=== PATIENT | male | born 1970 | race African-American/Black ===

== ENCOUNTER 2017-08-19 22:55 | Inpatient (IN) | payer OTHER, SELFPAY ==
[2017-08-19] MEDS ORDERED: Diltiazem 125 MG/25 ML ONE (23:09)
[2017-08-19 23:18] LABS: #Basophils 0.1 thou/uL (0.0-0.2); #Eosinphils 0.2 thou/uL (0.0-0.7); #Lymphocytes 4.2 thou/uL (1.20-3.40); #Monocytes 0.8 thou/uL (0.11-0.59); #Neutrophils 5.2 thou/uL (1.40-6.50); %Basophils 0.6 % (0.0-1.0); %Eosinophils 2.1 % (0.0-10.0); %Monocytes 7.9 % (0.0-10.0); %Neutrophils 49.4 % (42.0-75.0); Hemoglobin 14.5 g/dL (14.0-18.0); Mean Corpuscular HGB CONC 31.8 g/dL (32.0-36.0); Mean Corpuscular Hemoglobin 28.5 pg (27.0-31.0); Mean Corpuscular Volume 89.6 fl (80.0-94.0); Mean Platelet Volume 6.6 fL (7.4-10.4); Platelet Count 337 thou/uL (130-400); RBC Distribution Width 12.4 % (11.5-14.5); Red Blood Cell (RBC) Count 5.09 mill/uL (4.70-6.10); White Blood Cell (WBC) Count 10.6 thou/uL (4.8-10.8)
[2017-08-19 23:44] LABS: ALT (SGPT) 21 U/L (8-55); AST (SGOT) 23 U/L (5-34); Albumin 4.3 g/dL (3.5-5.0); Alkaline Phosphatase 99 U/L (40-150); Anion Gap 15 mmol/L (10-20); BUN (Urea Nitrogen) 10 mg/dL (8.9-20.6); Bilirubin, Total 0.6 mg/dL (0.2-1.2); CK (CPK) 252 U/L (30-200); Calc. Creatinine Clearance 0 mL/min (70-130); Calcium 9.9 mg/dL (7.8-10.44); Carbon Dioxide 23 mmol/L (22-29); Chloride 104 mmol/L (98-107); Estimated GFR-MDRD 79; Globulin 3.5 g/dL (2.4-3.5); Glucose 190 mg/dL (70-105); Potassium 4.4 mmol/L (3.5-5.1); Protein, Total 7.8 g/dL (6.0-8.3); Sodium 138 mmol/L (136-145)
[2017-08-19 23:48] LABS: Troponin I 0.012 ng/mL (< 0.028)
--- NOTE | 2017-08-19 23:49 | RAD ---
PORTABLE CHEST: 08/19/2017 PROVIDED CLINICAL HISTORY: Headache. COMPARISON: 12/24/2015 FINDINGS: The cardiac and mediastinal silhouette is unchanged in appearance. No focal consolidation, pleural f luid, or pneumothorax apparent. IMPRESSION: No evidence for an acute cardiopulmonary process. POS: [facility]
--- NOTE | 2017-08-19 23:58 | CT ---
CT BRAIN: 08/19/2017 PROVIDED CLINICAL HISTORY: Headache. COMPARISON: 04/15/2006 FINDINGS: The ventricular system is normal in size and morphology. There is no evidence for intracranial hemor rhage or mass effect. The extracranial soft tissues and osseous structures demonstrate an unremarkab le CT appearance. IMPRESSION: No evidence for intracranial hemorrhage or mass effect. POS: [facility]
[2017-08-20] MEDS ORDERED: Acetaminophen 325 MG TAB PO PRN (01:13)
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
[2017-08-20] MEDS ORDERED: Dextrose 5% in Water 1,000 ML IV PRN (01:26)
[2017-08-20] MEDS ORDERED: HumaLOG 300 UNITS/3 ML VIAL SC PRN (01:26)
[2017-08-20] MEDS ORDERED: Dextrose 50% Abboject 50 ML SYRINGE SLOW IVP PRN (01:26)
[2017-08-20] MEDS ORDERED: Diltiazem 125 MG in Sodium Chloride 0.9% 100 ML IVPB SCH (01:30)
[2017-08-20 01:46] LABS: Hemoglobin A1c 6.8 % (4.0-6.0); Magnesium 2.1 mg/dL (1.6-2.6); Phosphorus 3.7 mg/dL (2.3-4.7)
[2017-08-20 02:33] VITALS: BMI 36.2
[2017-08-20 02:40] LABS: #Basophils 0.1 thou/uL (0.0-0.2); #Eosinphils 0.2 thou/uL (0.0-0.7); #Lymphocytes 3.1 thou/uL (1.20-3.40); #Monocytes 0.6 thou/uL (0.11-0.59); #Neutrophils 4.3 thou/uL (1.40-6.50); %Basophils 0.9 % (0.0-1.0); %Eosinophils 2.2 % (0.0-10.0); %Lymphocytes 37.9 % (21.0-51.0); Hemoglobin 13.8 g/dL (14.0-18.0); Mean Corpuscular HGB CONC 33.3 g/dL (32.0-36.0); Mean Corpuscular Volume 89.9 fl (80.0-94.0); Mean Platelet Volume 6.6 fL (7.4-10.4); Platelet Count 305 thou/uL (130-400); RBC Distribution Width 12.4 % (11.5-14.5); Red Blood Cell (RBC) Count 4.61 mill/uL (4.70-6.10); White Blood Cell (WBC) Count 8.3 thou/uL (4.8-10.8)
[2017-08-20] MEDS ORDERED: Sodium Chloride 0.9% 1,000 ML IV SCH (02:45)
[2017-08-20 03:18] LABS: Troponin I 0.017 ng/mL (< 0.028)
[2017-08-20 03:25] LABS: Anion Gap 10 mmol/L (10-20); BUN (Urea Nitrogen) 14 mg/dL (8.9-20.6); Calc. Creatinine Clearance 185 mL/min (70-130); Calcium 9.5 mg/dL (7.8-10.44); Carbon Dioxide 23 mmol/L (22-29); Cardiac Risk 4.4 (Less than 4.5); Chloride 106 mmol/L (98-107); Cholesterol 181 mg/dl (< 200 Desired); Estimated GFR-MDRD Greater than 90; Glucose 82 mg/dL (70-105); HDL Cholesterol 41 mg/dL (>60 Neg Risk); LDL Cholesterol, Calculated 88 mg/dL; Potassium 4.1 mmol/L (3.5-5.1); Sodium 135 mmol/L (136-145); Triglycerides 258 mg/dL (Less than 150)
[2017-08-20 05:25] LABS: Troponin I 0.013 ng/mL (< 0.028)
[2017-08-20 07:46] LABS: Amphetamine Not Detected (NotDetected); Barbiturates Screen Not Detected (NotDetected); Benzodiazepine Screen Not Detected (NotDetected); Cocaine Metabolite Screen Not Detected (NotDetected); Medtox Control Line Valid? VALID (VALID); Medtox Reader # READER 1; Methadone Not Detected (NotDetected); Methamphetamine Not Detected (NotDetected); Opiate Screen Not Detected (NotDetected); Oxycodone Screen Not Detected (NotDetected); Phencyclidine (PCP) Not Detected (NotDetected); THC/Cannabinoid Screen Detected (NotDetected); Tricyclic Screen Not Detected (NotDetected)
[2017-08-20] MEDS ORDERED: Non-Formulary Item 1 EACH (Metformin Hcl [Metformin Hcl] 1,000 MG) PO SCH (08:00)
--- NOTE | 2017-08-20 08:06 | ULT ---
ULTRASOUND CAROTID BILATERAL STANDARD: HISTORY: Carotid bruit. Hypertensive emergency. COMPARISON: None. TECHNIQUE: Real-time, brown scale, color Doppler, and spectral analysis of the extracranial carotid and vertebral arteries is performed. There is mild atherosclerotic plaque of the right carotid bulb and extensive atherosclerotic plaque o f the left carotid bulb. Antegrade flow of the vertebral arteries. No elevated peak systolic velocities. Right ICA/CCA ratio is 0.67. Left ICA/CCA ratio is 0.4. IMPRESSION: No hemodynamically significant stenosis. POS: [facility]
[2017-08-20] MEDS ORDERED: glyBURIDE 5 MG TAB PO SCH (09:00)
[2017-08-20] MEDS: Aspirin 81 mg Enteric Coated Tablet PO SCH (09:50)
[2017-08-20] MEDS: Enoxaparin Sodium 40 MG/0.4 ML SYRINGE SC SCH (09:51)
--- NOTE | 2017-08-20 11:18 | PDOC.FM ---
- Subjective Subjective: Still complaining of photophobia but no headache or meningismus. Discussed benefit of LP this morning with pt and concern for SAH despite negative head CT. Pt declined. - Objective MAR Reviewed: Yes Vital Signs & Weight: Vital Signs (12 hours) Temp Pulse Resp BP Pulse Ox 08/20/17 08:09 98.3 F 82 20 97 08/20/17 08:05 98.3 F 82 20 122/73 97 08/20/17 04:00 98.6 F 80 18 115/56 L 08/20/17 02:45 98.3 F 91 20 97 08/20/17 02:10 98.3 F 91 20 125/74 97 Weight Weight 121.251 kg Result Diagrams: 08/20/17 02:30 08/20/17 02:30 <Olivia Guzman - Last Filed: 08/20/17 11:29> - Objective Vital Signs & Weight: Vital Signs (12 hours) Temp Pulse Resp BP Pulse Ox 08/21/17 04:00 98.1 F 89 20 110/61 99 08/21/17 00:00 98.5 F 92 20 135/82 98 Weight Weight 108.227 kg I&O: 08/20/17 08/21/17 08/22/17 06:59 06:59 06:59 Intake Total 366 Balance 366 Result Diagrams: 08/20/17 02:30 08/20/17 02:30 <Johny De nAda - Last Filed: 08/21/17 09:29> Phys Exam - Physical Examination Constitutional: NAD HEENT: PERRLA, moist MMs Respiratory: no wheezing, no rales, clear to auscultation bilateral 2/6 systolic murmur Gastrointestinal: soft, non-tender Musculoskeletal: no edema, pulses present Neurological: non-focal, normal sensation, moves all 4 limbs CN 2-12 intact Psychiatric: normal affect, A&O x 3 Skin: no rash <Olivia Guzman - Last Filed: 08/20/17 11:29> Dx/Plan (1) Hypertensive emergency Code(s): I16.1 - HYPERTENSIVE EMERGENCY Status: Acute (2) Heart failure with reduced ejection fraction Code(s): I50.20 - UNSPECIFIED SYSTOLIC (CONGESTIVE) HEART FAILURE Status: Acute (3) Hypertension Code(s): I10 - ESSENTIAL (PRIMARY) HYPERTENSION Status: Acute (4) Marijuana abuse Code(s): F12.10 - CANNABIS ABUSE, UNCOMPLICATED Status: Acute (5) Supraventricular tachycardia Code(s): I47.1 - SUPRAVENTRICULAR TACHYCARDIA Status: Acute (6) DM2 (diabetes mellitus, type 2) Status: Acute QualifierTitle: Chronic kidney disease stage: unspecified stage (7) GERD (gastroesophageal reflux disease) Code(s): K21.9 - GASTRO-ESOPHAGEAL REFLUX DISEASE WITHOUT ESOPHAGITIS Status: Acute QualifierTitle: Esophagitis presence: esophagitis presence not specified Qualified Code(s): K21.9 - Gastro-esophageal reflux disease without esophagitis (8) Headache Code(s): R51 - HEADACHE Status: Acute - Plan Plan: (1) Hypertensive Emergency: - Initial record BP in ED was 178/155 with associated SVT, diaphoresis, severe headache - BP and HR responded well to Diltiazem push, pt currently on diltiazem drip at 5 mg/hr with bp 122/73. - Resume home meds once off drip - Complains of photophobia this am - Neg CT head in ED for intracranial bleed, however still moderate suspicion for SAH. Discussed benefit with patient who declined LP. - Neg CXR, TSH normal, and repeat EKG showed Sinus Tachycardia - Troponins negative - Echo pending - Carotid bruits heard on initial H&P; carotid US ordered and did not show significant stenosis requiring intervention (2) SVT-Resolved - See above - Responded well to diltiazem push, repeat EKG showed Sinus Tachycardia - HR in the 80s-90s - wean off dilt drip and restart home meds; however patient may need rate control if he continues to go into SVT. Will monitor closely today and await echo results. - will consider cardiology consult after results. (4) Type 2 Diabetes Mellitus - Restart home metformin, hba1c 6.8 - SSI - Accuchecks ACHS (5) HTN: - Restart amlodipine after weaning off dilt drip (6) HLD: - Started pt on a high intensity statin (atorvastatin 40mg daily). <Olivia Guzman - Last Filed: 08/20/17 11:29> (1) Hypertensive emergency Code(s): I16.1 - HYPERTENSIVE EMERGENCY Status: Acute (2) Supraventricular tachycardia Code(s): I47.1 - SUPRAVENTRICULAR TACHYCARDIA Status: Resolved (3) Hypertension Code(s): I10 - ESSENTIAL (PRIMARY) HYPERTENSION Status: Chronic Qualifiers: Hypertension type: essential hypertension Qualified Code(s): I10 - Essential (primary) hypertension (4) CHF (congestive heart failure) Code(s): I50.9 - HEART FAILURE, UNSPECIFIED Status: Acute (5) Bilateral carotid bruits Code(s): R09.89 - OTH SYMPTOMS AND SIGNS INVOLVING THE CIRC AND RESP SYSTEMS Status: Acute (6) Marijuana abuse Code(s): F12.10 - CANNABIS ABUSE, UNCOMPLICATED Status: Chronic (7) DM2 (diabetes mellitus, type 2) Status: Chronic Qualifiers: Chronic kidney disease stage: unspecified stage <Johny De Anda - Last Filed: 08/21/17 09:29> Attending Addendum - Attending Addendum Date/Time: 08/21/17925 I personally evaluated the patient and discussed the management with Dr. Guzman I agree with the History, Examination, Assessment and Plan documented above with any addition or exceptions noted below. Note patient refusing LP r/o SAH patient understands indication,risks and potential risks and continues to decline LP. HR stable Echocardiogram with reduced EF 25% ACEI ,BB and statin initiated. <Johny De Anda - Last Filed: 08/21/17 09:29>
[2017-08-20] MEDS ORDERED: metFORMIN 500 MG TAB PO SCH (12:15)
[2017-08-20 14:10] LABS: Creatinine, Urine 103.77 mg/dL (63-166); Microalbumin Urine 17.5 mg/dL (0.5-50.0); Microalbumin/Creat Ratio 168.6 mg/g (Less than 30)
[2017-08-20] MEDS ORDERED: Metoclopramide HCl 10 MG/2 ML VIAL IVP SCH (15:45)
[2017-08-20] MEDS ORDERED: diphenhydrAMINE 25 MG in Sodium Chloride 0.9% 50 ML IVPB SCH (16:00)
[2017-08-20] MEDS: Lisinopril 2.5 MG TAB PO SCH (20:48)
[2017-08-20] MEDS: Atorvastatin Calcium 40 MG TAB PO SCH (20:48)
[2017-08-20] MEDS ORDERED: Amlodipine 10 MG TAB PO SCH ×2 (21:00)
--- NOTE | 2017-08-20 21:52 | CON ---
DATE OF CONSULTATION: 08/20/2017 HISTORY OF PRESENT ILLNESS: Mr. Jaleel Coleman is a 47-year-old black male, who states that approximately 8-10 years ago, he was hospitalized at [facility] in [place]. He was told that he had fluid on his heart, but he cannot give any other specific information. He was hospitalized here in 11/2015 for chest pain. Cardiac enzymes were unremarkable. He underwent Cardiolite testing , which revealed no evidence of ischemia. However, his ejection fraction on Cardiolite was 22%. Echo revealed ejection fraction of 30% to 35%. He has been followed at [facility]. He states in the past, he was on metoprolol as well as lisinopril; however, those were stopped at least a couple of years ago. He denies any recent chest discomfort. He now is admitted with complaints of increased shortness of breath, palpitations, diaphoresis, and headache. On presentation, his blood pressure is 178/155 and his pulse was 165/ minute. This appeared to be supraventricular tachycardia on his EKG. He was given 20 mg of Cardizem IV followed by Cardizem drip and apparently converted to sinus rhythm. In general, it does not sound as if he has any symptoms referable to his cardiomyopathy -- most of time, he has no shortness of breath. If he stands all day, he may have some edema. PAST MEDICAL HISTORY: Hypertension, diabetes, and hypercholesterolemia. MEDICATIONS: Amlodipine 10 mg at bedtime, simvastatin 20 at bedtime, glyburide 5 mg b.i.d., and metformin 1000 mg b.i.d. ALLERGIES: None. SOCIAL HISTORY: Does not smoke or drink, but occasionally uses marijuana. FAMILY HISTORY: Unremarkable. REVIEW OF SYSTEMS: Twelve-point review of systems otherwise unremarkable. PHYSICAL EXAMINATION: VITAL SIGNS: Blood pressure 124/78, pulse of 85. HEENT: PERRL. NECK: Supple. CHEST: Clear. CARDIAC: S1 and S2 are normal, without any S3, S4, or murmurs. Carotid upstrokes normal without bruits. ABDOMEN: Normal bowel sounds, without tenderness, organomegaly. EXTREMITIES: Revealed no clubbing, cyanosis, or edema. NEUROLOGIC: Grossly intact. SKIN: Warm and dry. LABORATORY DATA: Admission EKG revealed supraventricular tachycardia with rate of 165 per minute with possible left ventricular hypertrophy. Repeat EKG after he converted revealed sinus tachycardia with a rate of 111 per minute, poor R- wave progression. Hemoglobin 13.8, hematocrit 41.5, white count 98,300, platelets 305,000. D-dimer less than 0.27. Sodium 135, potassium 4.1, chloride 106, carbon dioxide 23, BUN 14, creatinine 0.83. Cardiac enzymes were unremarkable. Cholesterol 181, triglycerides 258, HDL 41, LDL 88. Echocardiogram revealed mild left ventricular enlargement, severe left ventricular dysfunction with ejection fraction of 25% to 30%, evidence for diastolic dysfunction, moderate left atrial enlargement, moderate mitral regurgitation, aortic valvular sclerosis, and mild tricuspid regurgitation. IMPRESSION: 1. Cardiomyopathy of uncertain etiology. He did have no evidence of ischemia or fixed defect on Cardiolite 2 years ago. Ejection fraction appears to have worsened with a fall from 30% - 35% to 25% - 30%. 2. Probable supraventricular tachycardia. This appeared to convert with intravenous Cardizem. 3. Hypertension. 4. Diabetes. 5. Hypercholesterolemia. PLAN: The patient should be on heart failure medications - carvedilol, SUZANNA inhibitor, and diuretic. Amlodipine will be discontinued. Instead he placed on carvedilol 6.25 b.i.d., lisinopril 2.5 mg b.i.d., and furosemide 20 q.a.m. Also, consideration should be given to cardiac catheterization to accurately rule out coronary artery disease as a cause of his cardiomyopathy. He seems somewhat reluctant to pursue this. However, we will continue to discuss this. He also should have a LifeVest placed, although I am not certain that he will be able to afford that. Also, consideration should be given to ICD placement if he continues to have poor left ventricular function 3 months from now. Consider RFA of SVT- will consult EP when back from the holiday weekend. EWA
--- NOTE | 2017-08-21 06:55 | PDOC.FM ---
- Subjective Subjective: Patient doing well this AM. No significant overnight events. Patient states he is no longer having headaches or photophobia. He is ready to go home. Discussed benefit of cardiac cath in length in determining further management of current HF condition. Patient also interested in learning more about the Life Vest and how much it costs. He denies any chest pain, headache, shortness of breath this AM. He is willing to talk with cardiology today about potential options for further workup. - Objective MAR Reviewed: Yes Vital Signs & Weight: Vital Signs (12 hours) Temp Pulse Resp BP BP Pulse Ox 08/21/17 04:00 98.1 F 89 20 110/61 99 08/21/17 00:00 98.5 F 92 20 135/82 98 08/20/17 20:48 94 135/73 08/20/17 20:00 99.2 F 94 20 135/73 99 Weight Weight 108.227 kg I&O: 08/19/17 08/20/17 08/21/17 06:59 06:59 06:59 Intake Total 366 Balance 366 Result Diagrams: 08/20/17 02:30 08/20/17 02:30 EKG Reviewed by me: Yes Radiology Reviewed by me: No <Ciara Padilla - Last Filed: 08/21/17 07:56> - Objective Vital Signs & Weight: Vital Signs (12 hours) Temp Pulse Resp BP Pulse Ox 08/21/17 04:00 98.1 F 89 20 110/61 99 08/21/17 00:00 98.5 F 92 20 135/82 98 Weight Weight 108.227 kg I&O: 08/20/17 08/21/17 08/22/17 06:59 06:59 06:59 Intake Total 366 Balance 366 Result Diagrams: 08/20/17 02:30 08/20/17 02:30 <Johny De Anda - Last Filed: 08/21/17 09:53> Phys Exam - Physical Examination Constitutional: NAD HEENT: PERRLA, moist MMs, sclera anicteric Neck: supple Respiratory: no wheezing, clear to auscultation bilateral Cardiovascular: RRR Gastrointestinal: soft, no distention, positive bowel sounds Musculoskeletal: no edema, pulses present Neurological: non-focal, moves all 4 limbs Psychiatric: normal affect, A&O x 3 Skin: no rash, cap refill <2 seconds <Ciara Padilla - Last Filed: 08/21/17 07:56> Dx/Plan (1) Hypertensive emergency Code(s): I16.1 - HYPERTENSIVE EMERGENCY Status: Acute (2) Headache Code(s): R51 - HEADACHE Status: Acute (3) Supraventricular tachycardia Code(s): I47.1 - SUPRAVENTRICULAR TACHYCARDIA Status: Resolved (4) Heart failure with reduced ejection fraction Code(s): I50.20 - UNSPECIFIED SYSTOLIC (CONGESTIVE) HEART FAILURE Status: Chronic QualifierTitle: Heart failure chronicity: chronic Qualified Code(s): I50.22 - Chronic systolic (congestive) heart failure (5) HLD (hyperlipidemia) Code(s): E78.5 - HYPERLIPIDEMIA, UNSPECIFIED Status: Chronic QualifierTitle: Hyperlipidemia type: unspecified Qualified Code(s): E78.5 - Hyperlipidemia, unspecified (6) Hypertension Code(s): I10 - ESSENTIAL (PRIMARY) HYPERTENSION Status: Chronic QualifierTitle: Hypertension type: essential hypertension Qualified Code( s): I10 - Essential (primary) hypertension (7) Marijuana abuse Code(s): F12.10 - CANNABIS ABUSE, UNCOMPLICATED Status: Chronic (8) DM2 (diabetes mellitus, type 2) Status: Chronic QualifierTitle: Chronic kidney disease stage: unspecified stage - Plan Plan: Cardiomyopathy of uncertain etiology - No ischemia or fixed defect on cardiolite stress test 2 years ago. EF down to 20-25% on recent echo from 30-35% from echo done in 2016. - Pt started on SUZANNA-I, BB, and diuretic per cardiology - Cardiology consulted; appreciate recs - Pt would benefit from cardiac cath to rule out CAD as cause of CHF, but he is reluctant at this time - Pt in need of Life Vest, but uncertain whether he can afford it - Pt may need ICD placed if poor LV function in 3 months - Echo done during this hospitalization shows EF 20-25% with diastolic dysfunction Hypertensive Emergency, resolved - Initial record BP in ED was 178/155 with associated SVT, diaphoresis, severe headache - BP and HR responded well to Diltiazem push, drip discontinued - Amlodipine d/c'd per cards and pt started on SUZANNA-I due to comorbid CHF - Neg CT head in ED for intracranial bleed, however still moderate suspicion for SAH. Discussed benefit with patient who declined LP. - Neg CXR, TSH normal, and repeat EKG showed Sinus Tachycardia - Troponins negative - Echo shows reduced EF of 20-25% which is decreased from prior echo - Carotid bruits heard on initial H&P; carotid US ordered and did not show significant stenosis requiring intervention SVT-Resolved - See above - Responded well to diltiazem push, repeat EKG showed Sinus Tachycardia - HR in the 80s-90s - Pt started on carvedilol for CHF, this will presumably help to rate control pt. - Cardiology consulted; appreciate recs Type 2 Diabetes Mellitus - Restart home metformin, hba1c 6.8 - SSI - Accuchecks ACHS HTN: - d/c'd amlodipine per cardiology; started on lisinopril and carvedilol for comorbid CHF HLD: - Started pt on a high intensity statin (atorvastatin 40mg daily). CODE STATUS: Full DVT PPx: Lovenox Dispo: Pt stable. Recommend cardiac cath and possible Life Vest. Pt to discuss further with cardiology. Discharge pending cardiology recs. <Ciara Padilla - Last Filed: 08/21/17 07:56> (1) Hypertensive emergency Code(s): I16.1 - HYPERTENSIVE EMERGENCY Status: Acute (2) Supraventricular tachycardia Code(s): I47.1 - SUPRAVENTRICULAR TACHYCARDIA Status: Resolved (3) Hypertension Code(s): I10 - ESSENTIAL (PRIMARY) HYPERTENSION Status: Chronic Qualifiers: Hypertension type: essential hypertension Qualified Code(s): I10 - Essential (primary) hypertension (4) CHF (congestive heart failure) Code(s): I50.9 - HEART FAILURE, UNSPECIFIED Status: Acute (5) Bilateral carotid bruits Code(s): R09.89 - OTH SYMPTOMS AND SIGNS INVOLVING THE CIRC AND RESP SYSTEMS Status: Acute (6) Marijuana abuse Code(s): F12.10 - CANNABIS ABUSE, UNCOMPLICATED Status: Chronic (7) DM2 (diabetes mellitus, type 2) Status: Chronic Qualifiers: Chronic kidney disease stage: unspecified stage <Johny De Anda - Last Filed: 08/21/17 09:53> Attending Addendum - Attending Addendum Date/Time: 08/21/17 1163 I personally evaluated the patient and discussed the management with Dr. Padilla I agree with the History, Examination, Assessment and Plan documented above with any addition or exceptions noted below. Patient with cardiomyopathy EF25% patient this am declining recommendation for Heart cath. Patient counseled regard life vest and will look into availability and cost. Appreciate Cardiology recommendations. <Johny De Anda - Last Filed: 08/21/17 09:53>
[2017-08-21] MEDS ORDERED: Furosemide 20 MG TAB PO SCH (09:00)
[2017-08-21] MEDS: Enoxaparin Sodium 40 MG/0.4 ML SYRINGE SC SCH (11:52)
[2017-08-21] MEDS: Lisinopril 2.5 MG TAB PO SCH (11:52)
[2017-08-21] MEDS: metFORMIN 500 MG TAB PO SCH ×2 (11:54→17:59)
[2017-08-21] MEDS: Carvedilol 6.25 MG TAB PO SCH ×2 (11:54→17:00)
[2017-08-21] MEDS: Aspirin 81 mg Enteric Coated Tablet PO SCH (11:54)
[2017-08-21] MEDS: Atorvastatin Calcium 40 MG TAB PO SCH (20:31)
[2017-08-21] MEDS ORDERED: Lisinopril 5 MG TAB PO SCH (21:00)
[2017-08-21] MEDS ORDERED: Carvedilol 6.25 MG TAB PO SCH (21:00)
[2017-08-22 01:06] VITALS: BP 141/83; TEMP 97.5
[2017-08-22] MEDS ORDERED: Furosemide 40 MG TAB PO SCH (07:30)
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
== END 2017-08-22 04:20 | disposition left against medical advice (07) | DRG 309 ==
LOC: ERS 22:55 → 2NO 08-20 00:42
PROVIDERS: ADMIT Emergency Medicine; ATTEND Emergency Medicine
DX: I47.1 Supraventricular tachycardia (principal); I16.1 Hypertensive emergency; I42.8 Other cardiomyopathies; I50.22 Chronic systolic (congestive) heart failure; I13.0 Hypertensive heart and chronic kidney disease with heart failure and stage 1 through stage 4 chronic kidney disease, or unspecified chronic kidney disease; N18.9 Chronic kidney disease, unspecified; E11.22 Type 2 diabetes mellitus with diabetic chronic kidney disease; E78.5 Hyperlipidemia, unspecified; E78.00 Pure hypercholesterolemia, unspecified; R51 Headache; F12.10 Cannabis abuse, uncomplicated; R09.89 Other specified symptoms and signs involving the circulatory and respiratory systems; K21.9 Gastro-esophageal reflux disease without esophagitis
CPT/HCPCS: 36415; 36416; 70450; 71045; 80048; 80053; 80061; 80306; 82043; 82553; 83036; 83735; 83880; 84100; 84443; 84484; 85025; 93005; 93306; 93798; 93880; 96365; 96366; 96376; J1200; J1650; J7050

== ENCOUNTER 2017-08-22 12:52 | Inpatient (IN) | payer OTHER, SELFPAY ==
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
[2017-08-22] MEDS ORDERED: Labetalol HCl 100 MG/20 ML VIAL SLOW IVP ONE (13:40)
[2017-08-22 13:56] LABS: #Basophils 0.1 thou/uL (0.0-0.2); #Eosinphils 0.1 thou/uL (0.0-0.7); #Lymphocytes 2.2 thou/uL (1.20-3.40); #Monocytes 0.4 thou/uL (0.11-0.59); #Neutrophils 4.7 thou/uL (1.40-6.50); %Eosinophils 1.2 % (0.0-10.0); %Lymphocytes 29.3 % (21.0-51.0); %Monocytes 5.9 % (0.0-10.0); %Neutrophils 62.7 % (42.0-75.0); Hemoglobin 15.4 g/dL (14.0-18.0); Mean Corpuscular Hemoglobin 30.2 pg (27.0-31.0); Mean Corpuscular Volume 88.9 fl (80.0-94.0); Mean Platelet Volume 6.8 fL (7.4-10.4); Platelet Count 344 thou/uL (130-400); RBC Distribution Width 12.4 % (11.5-14.5); White Blood Cell (WBC) Count 7.5 thou/uL (4.8-10.8)
[2017-08-22] MEDS ORDERED: Labetalol HCl 100 MG/20 ML VIAL ONE (14:01)
[2017-08-22 14:22] LABS: CKMB 2.7 ng/mL (0-6.6); Troponin I Less than 0.010 ng/mL (< 0.028)
[2017-08-22 14:26] LABS: Troponin I Less than 0.010 ng/mL (< 0.028)
[2017-08-22] MEDS ORDERED: Ondansetron HCl/PF 4 MG/2 ML Vial IVP PRN ×2 (15:37→16:20)
[2017-08-22] MEDS ORDERED: Ondansetron ODT 4 MG TAB SL PRN (15:37)
[2017-08-22] MEDS ORDERED: Sodium Chloride 0.9% 1,000 ML IV SCH (15:37)
[2017-08-22] MEDS ORDERED: Dextrose 5% in Water 1,000 ML IV PRN (16:20)
[2017-08-22] MEDS ORDERED: Dextrose 50% Abboject 50 ML SYRINGE SLOW IVP PRN (16:20)
[2017-08-22] MEDS ORDERED: Calcium Carbonate 500 MG ChewTAB PO PRN (16:20)
[2017-08-22] MEDS ORDERED: Acetaminophen 325 MG TAB PO PRN (16:20)
[2017-08-22] MEDS ORDERED: Ondansetron ODT 4 MG TAB PO PRN (16:20)
[2017-08-22] MEDS ORDERED: Enoxaparin Sodium 40 MG/0.4 ML SYRINGE SC SCH (16:30)
[2017-08-22 16:59] VITALS: BMI 35.7
[2017-08-22] MEDS ORDERED: Communication Order-Pharmacy FS SCH (17:30)
[2017-08-22] MEDS: Sodium Chloride 0.9% 1,000 ML IV SCH (17:35)
[2017-08-22] MEDS: metFORMIN 500 MG TAB PO SCH (17:39)
[2017-08-22] MEDS: HumaLOG 300 UNITS/3 ML VIAL SC PRN (18:36)
[2017-08-22] MEDS: Carvedilol 6.25 MG TAB PO SCH (18:39)
[2017-08-22] MEDS ORDERED: Atorvastatin Calcium 40 MG TAB PO SCH (21:00)
[2017-08-23] MEDS: Carvedilol 6.25 MG TAB PO SCH ×2 (05:18→17:09)
[2017-08-23] MEDS: Furosemide 20 MG TAB PO SCH (05:18)
[2017-08-23] MEDS: Sodium Chloride 0.9% 1,000 ML IV SCH (05:18)
--- NOTE | 2017-08-23 06:38 | PDOC.FM ---
- Subjective Subjective: Patient doing well this AM. No significant overnight events. Denies chest pain, palpitations, shortness of breath or headache. Agreed to proceed heart catheterization. - Objective MAR Reviewed: Yes Vital Signs & Weight: Vital Signs (12 hours) Temp Pulse Resp BP BP Pulse Ox 08/23/17 05:18 147/89 H 08/23/17 05:17 95 08/23/17 03:59 98.7 F 95 17 131/72 99 08/22/17 23:55 86 18 142/76 H 94 L 08/22/17 20:00 98.4 F 95 18 124/61 08/22/17 18:39 147/89 H Weight Weight 119.159 kg I&O: 08/21/17 08/22/17 08/23/17 06:59 06:59 06:59 Intake Total 300 Output Total 600 Balance -300 Result Diagrams: 08/22/17 13:43 EKG Reviewed by me: Yes Radiology Reviewed by me: No Phys Exam - Physical Examination Constitutional: NAD HEENT: moist MMs, sclera anicteric Neck: no nodes, supple Respiratory: no wheezing, clear to auscultation bilateral Cardiovascular: RRR, no significant murmur Gastrointestinal: soft, non-tender, no distention, positive bowel sounds Musculoskeletal: no edema, pulses present Neurological: non-focal, moves all 4 limbs Psychiatric: normal affect, A&O x 3 Skin: no rash, cap refill <2 seconds Dx/Plan (1) Heart failure with reduced ejection fraction Code(s): I50.20 - UNSPECIFIED SYSTOLIC (CONGESTIVE) HEART FAILURE Status: Chronic Qualifiers: Heart failure chronicity: chronic Qualified Code(s): I50.22 - Chronic systolic (congestive) heart failure (2) DM2 (diabetes mellitus, type 2) Status: Chronic Qualifiers: Chronic kidney disease stage: unspecified stage (3) HLD (hyperlipidemia) Code(s): E78.5 - HYPERLIPIDEMIA, UNSPECIFIED Status: Chronic Qualifiers: Hyperlipidemia type: unspecified Qualified Code(s): E78.5 - Hyperlipidemia , unspecified (4) HTN, goal below 140/90 Code(s): I10 - ESSENTIAL (PRIMARY) HYPERTENSION Status: Chronic (5) Marijuana abuse Code(s): F12.10 - CANNABIS ABUSE, UNCOMPLICATED Status: Chronic - Plan Plan: Cardiomyopathy of uncertain etiology w/ EF 20-25 - Admit to tele & Continue SUZANNA-I, BB, and lasix - Recommend cardiac cath to rule out ischemia; will go for procedure today - NPO @ mn in preparation for potential cath - Recommend Life Vest due to low EF and presentation with arrhythmia at admission two days ago; pending case mgmt assistance & financial aide - Will need repeat echo in 3 months after maximized medical mgmt to determine if AICD candidate - Cardiology consulted; appreciate recs Sinus tachycardia - Concern for development of arrhythmias - Restarted carvedilol that was started a few days ago for HF HTN Emergency, resolved - no further headache or signs of end organ damage - continue BB, ACEI as prescribed - BP stable. Continue to monitor and adjust medications as needed DM 2 - Restart home metformin, hba1c 6.8 - SSI + Accuchecks ACHS - CC diet once diet added HLD - high intensity statin Dispo: Stable. Will go for heart catheterization today
[2017-08-23] MEDS: metFORMIN 500 MG TAB PO SCH (07:05)
[2017-08-23] MEDS ORDERED: Lidocaine 1% (PF) 30 ML VIAL ONE (07:07)
[2017-08-23] MEDS ORDERED: Heparin 10,000 UNITS/1 ML VIAL ONE (07:07)
[2017-08-23 08:58] LABS: Prothrombin Time 13.1 SEC (12.0-14.7)
[2017-08-23] MEDS ORDERED: Enoxaparin Sodium 40 MG/0.4 ML SYRINGE SC SCH (09:00)
[2017-08-23] MEDS ORDERED: Lisinopril 5 MG TAB PO SCH (09:00)
[2017-08-23] MEDS ORDERED: Midazolam HCl 2 mg/2 ml Vial ONE (09:01)
[2017-08-23] MEDS ORDERED: Fentanyl 100 MCG/2 ML VIAL ONE (09:02)
[2017-08-23 09:15] LABS: Anion Gap 12 mmol/L (10-20); BUN (Urea Nitrogen) 15 mg/dL (8.9-20.6); Calc. Creatinine Clearance 177 mL/min (70-130); Calcium 9.7 mg/dL (7.8-10.44); Carbon Dioxide 22 mmol/L (22-29); Chloride 104 mmol/L (98-107); Estimated GFR-MDRD Greater than 90; Glucose 189 mg/dL (70-105); Potassium 4.2 mmol/L (3.5-5.1); Sodium 134 mmol/L (136-145)
[2017-08-23] MEDS ORDERED: Protamine Sulfate 50 MG/5 ML VIAL ONE (09:18)
[2017-08-23] MEDS ORDERED: Acetaminophen/Codeine 30-300mg Tablet PO PRN ×2 (09:28)
[2017-08-23] MEDS ORDERED: traMADol HCl 50 MG TAB PO PRN (09:28)
[2017-08-23] MEDS ORDERED: Nitroglycerin 0.4 MG TAB (25 Tab Bottle) SL PRN (09:28)
[2017-08-23] MEDS ORDERED: Sodium Chloride 0.9% 1,000 ML IV SCH (09:30)
[2017-08-23] MEDS ORDERED: Sodium Chloride 0.9% 200 ML IV SCH (09:30)
[2017-08-23] MEDS ORDERED: Iopamidol 370 76% 100 ML VIAL ONE (10:22)
[2017-08-23] MEDS: HumaLOG 300 UNITS/3 ML VIAL SC PRN (12:48)
--- NOTE | 2017-08-23 16:02 | ADD-PRG ---
DATE OF SERVICE: 08/23/2017 This is an addendum to the note of Dr. Ciara Padilla. Mr. 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 His most recent ejection fraction was 20%-25%. He has been seen by Cardiology who recommended a cardiac catheterization to completely rule out coronary artery disea se. Preliminarily, his heart catheterization was normal showing no evidence of significant CAD. We will continue to follow with Cardiology and continue with his current heart failure regimen.
[2017-08-23] MEDS ORDERED: Simvastatin 40 MG TAB PO SCH (21:00)
[2017-08-23] MEDS ORDERED: Atorvastatin Calcium 40 MG TAB PO SCH (21:00)
--- NOTE | 2017-08-24 07:02 | PDOC.FM ---
- Subjective Subjective: Patient doing well this AM. No significant overnight events. Denies chest pain, shortness of breath or palpitations. Patient states that he has been communicating with an individual named Kathrine regarding the Life Vest. She is helping to work things out financially. He was told this could all be done from home. Patient is in good spirits and seems to be highly motivated to make some changes. He was very inquisitive when asking questions regarding his medications. - Objective MAR Reviewed: Yes Vital Signs & Weight: Vital Signs (12 hours) Temp Pulse Resp BP Pulse Ox 08/24/17 04:00 97.9 F 88 18 135/81 96 08/23/17 20:00 98.8 F 88 16 121/65 97 Weight Weight 118.932 kg I&O: 08/23/17 08/24/17 08/25/17 06:59 06:59 06:59 Intake Total 300 Output Total 600 901 Balance -300 -901 Result Diagrams: 08/22/17 13:43 08/23/17 08:36 EKG Reviewed by me: Yes Radiology Reviewed by me: No <Ciara Padilla - Last Filed: 08/24/17 08:21> - Objective Vital Signs & Weight: Vital Signs (12 hours) Temp Pulse Pulse Pulse Resp BP BP 08/24/17 08:48 98.9 F 87 16 134/85 08/24/17 08:46 74 93 134/85 BP BP Pulse Ox Pulse Ox Pulse Ox 08/24/17 08:48 134/85 87 L 08/24/17 08:46 156/86 H 97 99 Weight Weight 118.932 kg I&O: 08/23/17 08/24/17 08/25/17 06:59 06:59 06:59 Intake Total 300 Output Total 600 901 Balance -300 -901 Result Diagrams: 08/22/17 13:43 08/23/17 08:36 <Ramsey Garcia - Last Filed: 08/24/17 16:51> Phys Exam - Physical Examination Constitutional: NAD HEENT: moist MMs, sclera anicteric Neck: supple Respiratory: clear to auscultation bilateral Cardiovascular: RRR, no significant murmur Gastrointestinal: soft, non-tender, positive bowel sounds Musculoskeletal: no edema, pulses present Neurological: non-focal, moves all 4 limbs Psychiatric: normal affect, A&O x 3 Skin: no rash, cap refill <2 seconds <Ciara Padilla - Last Filed: 08/24/17 08:21> Dx/Plan (1) Heart failure with reduced ejection fraction Code(s): I50.20 - UNSPECIFIED SYSTOLIC (CONGESTIVE) HEART FAILURE Status: Chronic QualifierTitle: Heart failure chronicity: chronic Qualified Code(s): I50.22 - Chronic systolic (congestive) heart failure (2) DM2 (diabetes mellitus, type 2) Status: Chronic QualifierTitle: Chronic kidney disease stage: unspecified stage (3) HLD (hyperlipidemia) Code(s): E78.5 - HYPERLIPIDEMIA, UNSPECIFIED Status: Chronic QualifierTitle: Hyperlipidemia type: unspecified Qualified Code(s): E78.5 - Hyperlipidemia, unspecified (4) HTN, goal below 140/90 Code(s): I10 - ESSENTIAL (PRIMARY) HYPERTENSION Status: Chronic (5) Marijuana abuse Code(s): F12.10 - CANNABIS ABUSE, UNCOMPLICATED Status: Chronic - Plan Plan: Cardiomyopathy of uncertain etiology w/ EF 20-25 - Continue ARB, BB, and lasix; switched from SUZANNA-I to ARB due to potential adverse effect of lip and tongue swelling - Cardiac cath negative for any signs of ischemia or CAD - Recommend Life Vest due to low EF and presentation with arrhythmia at admission; Pt has spoken to a Life Vest medical representative by the name of Kathrine who is providing information on financial assistance - Will need repeat echo in 3 months after maximized medical mgmt to determine if AICD candidate - Cardiology consulted; appreciate recs Sinus tachycardia, resolved - Concern for development of arrhythmias; telemetry showed only SR yesterday - Continue carvedilol for HF HTN Emergency, resolved - no further headache or signs of end organ damage - continue BB, ARB as prescribed - BP stable. Continue to monitor and adjust medications as needed DM 2 - Restart home metformin, hba1c 6.8 - SSI + Accuchecks ACHS - CC diet once diet added - Continue high intensity statin HLD - high intensity statin Dispo: Stable. Discharge home today with close follow up with cardiology and PCP. <Ciara Padilla - Last Filed: 08/24/17 08:21> Attending Addendum - Attending Addendum Date/Time: 08/24/17 1650 I personally evaluated the patient and discussed the management with Dr. Padilla. I agree with the History, Examination, Assessment and Plan documented above with any addition or exceptions noted below. <Ramsey Garcia - Last Filed: 08/24/17 16:51>
[2017-08-24] MEDS: Furosemide 20 MG TAB PO SCH (08:48)
[2017-08-24] MEDS: Carvedilol 6.25 MG TAB PO SCH (08:48)
[2017-08-24 08:50] VITALS: BP 134/85
[2017-08-24 08:53] VITALS: TEMP 98.9
[2017-08-24] MEDS ORDERED: Losartan 25 MG TAB PO SCH (09:00)
--- NOTE | 2017-08-25 14:27 | EKG ---
Test Reason : Blood Pressure : / mmHG Vent. Rate : 116 BPM Atrial Rate : 116 BPM P-R Int : 142 ms QRS Dur : 086 ms QT Int : 334 ms P-R-T Axes : -01 -21 034 degrees QTc Int : 464 ms Sinus tachycardia Moderate voltage criteria for LVH, may be normal variant No STEMI Borderline ECG Confirmed by VERONICA LANTIGUA, TAMRA ([id number]), industrial editor JESSE RAMOS ([id number]) on 08/25/2017 2:27:46 PM Referred By: Confirmed By:TAMRA MARTIN MD
== END 2017-08-24 14:11 | disposition home or self-care (01) | DRG 287 ==
LOC: ERS 12:52 → 2NO 13:37
PROVIDERS: ADMIT Family Medicine; ATTEND Family Medicine
PROC: 4A023N7 Measurement of Cardiac Sampling and Pressure, Left Heart, Percutaneous Approach (ICD-10-PCS; principal; 2017-08-23)
PROC: B2111ZZ Fluoroscopy of Multiple Coronary Arteries using Low Osmolar Contrast (ICD-10-PCS; 2017-08-23)
DX: I16.1 Hypertensive emergency (principal); I42.9 Cardiomyopathy, unspecified; I50.22 Chronic systolic (congestive) heart failure; I11.0 Hypertensive heart disease with heart failure; E11.9 Type 2 diabetes mellitus without complications; E78.5 Hyperlipidemia, unspecified; F12.10 Cannabis abuse, uncomplicated; K21.9 Gastro-esophageal reflux disease without esophagitis
CPT/HCPCS: 36415; 36416; 80048; 82553; 83880; 84484; 85025; 85347; 85610; 93005; 93454; 93798; 96374; 99152; A4216; C1769; J1644; J1650; J2001; J2250; J2720; J3010

== ENCOUNTER 2017-11-21 21:04 | Emergency (ER) | payer OTHER, SELFPAY ==
[2017-11-21] MEDS ORDERED: Ketorolac Tromethamine 60 MG/2 ML VIAL ONE (22:19)
--- NOTE | 2017-11-21 23:04 | RAD ---
LEFT SHOULDER THREE VIEWS: 11/21/2017 HISTORY: Left shoulder pain for five weeks. FINDINGS: There is mild left acromioclavicular joint osteoarthritis. No fracture or dislocation is seen. Calc ific densities are seen at the superolateral aspect of the greater tuberosity, which may be attributa ble to calcific peritendinitis. No other findings. IMPRESSION: 1. No acute osseous abnormality, left shoulder. 2. Mild left acromioclavicular joint osteoarthritis. 3. Findings likely related to calcific peritendinitis. POS: HEMA
[2017-11-21 23:14] LABS: #Basophils 0.1 thou/uL (0.0-0.2); #Eosinphils 0.4 thou/uL (0.0-0.7); #Lymphocytes 2.1 thou/uL (1.20-3.40); #Monocytes 0.5 thou/uL (0.11-0.59); #Neutrophils 4.8 thou/uL (1.40-6.50); %Basophils 0.9 % (0.0-1.0); %Eosinophils 4.8 % (0.0-10.0); %Lymphocytes 26.4 % (21.0-51.0); %Monocytes 6.7 % (0.0-10.0); %Neutrophils 61.2 % (42.0-75.0); Hemoglobin 12.5 g/dL (14.0-18.0); Mean Corpuscular HGB CONC 33.3 g/dL (32.0-36.0); Mean Corpuscular Hemoglobin 30.6 pg (27.0-31.0); Mean Corpuscular Volume 91.7 fL (78.0-98.0); Mean Platelet Volume 6.4 fL (7.4-10.4); Platelet Count 288 thou/uL (130-400); RBC Distribution Width 12.3 % (11.5-14.5); Red Blood Cell (RBC) Count 4.09 mill/uL (4.70-6.10); White Blood Cell (WBC) Count 7.9 thou/uL (4.8-10.8)
[2017-11-21 23:35] LABS: ALT (SGPT) 13 U/L (8-55); AST (SGOT) 15 U/L (5-34); Albumin 3.9 g/dL (3.5-5.0); Alkaline Phosphatase 98 U/L (40-150); Anion Gap 14 mmol/L (10-20); BUN (Urea Nitrogen) 17 mg/dL (8.9-20.6); Bilirubin, Total 0.3 mg/dL (0.2-1.2); CK (CPK) 164 U/L (30-200); Calc. Creatinine Clearance 0 mL/min (70-130); Calcium 9.4 mg/dL (7.8-10.44); Carbon Dioxide 25 mmol/L (22-29); Chloride 104 mmol/L (98-107); Estimated GFR-MDRD Greater than 90; Globulin 3.3 g/dL (2.4-3.5); Glucose 156 mg/dL (70-105); Lipase 39 U/L (8-78); Potassium 4.3 mmol/L (3.5-5.1); Protein, Total 7.2 g/dL (6.0-8.3); Sodium 139 mmol/L (136-145)
[2017-11-21 23:39] LABS: CKMB 1.6 ng/mL (0-6.6); Troponin I Less than 0.010 ng/mL (< 0.028)
--- NOTE | 2017-11-25 13:39 | EKG ---
Test Reason : Blood Pressure : / mmHG Vent. Rate : 087 BPM Atrial Rate : 087 BPM P-R Int : 162 ms QRS Dur : 090 ms QT Int : 368 ms P-R-T Axes : 007 -19 003 degrees QTc Int : 442 ms Normal sinus rhythm Possible Left atrial enlargement Left ventricular hypertrophy Inferior infarct , age undetermined Abnormal ECG Confirmed by KEV JACOBSEN M.D. ([id number]), video news editor JESSE RAMOS ([id number]) on 11/25/2017 1:39:24 PM Referred By: Confirmed By:KEV JACOBSEN M.D.
== END 2017-11-22 00:35 | disposition home or self-care (01) ==
LOC: ERS 21:04
DX: M75.32 Calcific tendinitis of left shoulder (principal); I11.0 Hypertensive heart disease with heart failure; I50.9 Heart failure, unspecified; E11.9 Type 2 diabetes mellitus without complications; E78.5 Hyperlipidemia, unspecified; F32.9 Major depressive disorder, single episode, unspecified; I73.00 Raynaud's syndrome without gangrene; I25.10 Atherosclerotic heart disease of native coronary artery without angina pectoris; M19.90 Unspecified osteoarthritis, unspecified site; Z79.82 Long term (current) use of aspirin; Z79.84 Long term (current) use of oral hypoglycemic drugs; Z79.899 Other long term (current) drug therapy
CPT/HCPCS: 36415; 80053; 82553; 83690; 83880; 84484; 85025; 93005; 96372; J1885

== ENCOUNTER 2018-02-04 17:31 | Observation (INO) | payer SELFPAY ==
[2018-02-04] MEDS ORDERED: Adenosine 6 MG/2 ML VIAL ONE (17:53)
[2018-02-04 17:55] LABS: #Basophils 0.1 thou/uL (0.0-0.2); #Eosinphils 0.2 thou/uL (0.0-0.7); #Lymphocytes 3.6 thou/uL (1.20-3.40); #Monocytes 0.8 thou/uL (0.11-0.59); #Neutrophils 4.3 thou/uL (1.40-6.50); %Basophils 1.1 % (0.0-1.0); %Eosinophils 2.5 % (0.0-10.0); %Monocytes 8.6 % (0.0-10.0); %Neutrophils 47.9 % (42.0-75.0); Hemoglobin 15.2 g/dL (14.0-18.0); Mean Corpuscular Hemoglobin 28.9 pg (27.0-31.0); Mean Corpuscular Volume 90.4 fL (78.0-98.0); Mean Platelet Volume 6.8 fL (7.4-10.4); Platelet Count 387 thou/uL (130-400); RBC Distribution Width 13.1 % (11.5-14.5); Red Blood Cell (RBC) Count 5.27 mill/uL (4.70-6.10); White Blood Cell (WBC) Count 8.9 thou/uL (4.8-10.8)
[2018-02-04] MEDS ORDERED: Ondansetron PF 4 MG/2 ML Vial ONE (18:03)
[2018-02-04] MEDS ORDERED: Magnesium 2 GM/50 ML BAG (IN WATER) ONE (18:10)
--- NOTE | 2018-02-04 18:12 | RAD ---
PORTABLE UPRIGHT CHEST ONE VIEW: 02/04/18 HISTORY: 47-year-old male with history of chest pain. COMPARISON: 08/19/17. Mild cardiomegaly. No confluent pneumonia, overt edema or pleural effusion or other acute process. Th oracic spine disc osteophytosis. IMPRESSION: Minimal cardiomegaly without other acute process. POS: OSMAN
[2018-02-04 18:15] LABS: ALT (SGPT) 21 U/L (8-55); AST (SGOT) 24 U/L (5-34); Albumin 4.4 g/dL (3.5-5.0); Alkaline Phosphatase 104 U/L (40-150); Anion Gap 16 mmol/L (10-20); BUN (Urea Nitrogen) 16 mg/dL (8.9-20.6); Bilirubin, Total 0.4 mg/dL (0.2-1.2); CK (CPK) 228 U/L (30-200); Calc. Creatinine Clearance 0 mL/min (70-130); Calcium 9.9 mg/dL (7.8-10.44); Carbon Dioxide 22 mmol/L (22-29); Chloride 101 mmol/L (98-107); Estimated GFR-MDRD 85; Globulin 3.9 g/dL (2.4-3.5); Glucose 247 mg/dL (70-105); Potassium 4.4 mmol/L (3.5-5.1); Protein, Total 8.3 g/dL (6.0-8.3); Sodium 135 mmol/L (136-145)
[2018-02-04 18:19] LABS: CKMB 2.3 ng/mL (0-6.6); Troponin I Less than 0.010 ng/mL (< 0.028)
[2018-02-04 21:14] LABS: Bilirubin Negative (Negative); Blood, Urine Negative (Negative); Clarity CLEAR (Clear); Glucose, Urine (Dipstick) Negative (Negative); Leukocyte Negative (Negative); Nitrite Negative (Negative); Protein, Urine (Dipstick) 100 mg/dL (Neg-Trace); Specific Gravity, Urine 1.029 (1.002-1.036); pH, Urine 5.5 (5.0-9.0)
[2018-02-04 21:15] LABS: Bacteria/HPF None Seen HPF (None Seen); Hyaline Casts/LPF 0-3 HYALINE CAST LPF (0-3 Hyaline); Pathc Cast-AUWi Flag 0.43 (0-2.49); RBC/HPF 0-3 HPF (0-3); Squamous Epithelial 0-3 HPF (0-3); WBC/HPF 0-3 HPF (0-3)
[2018-02-04 21:58] LABS: Troponin I Less than 0.010 ng/mL (< 0.028)
[2018-02-05 00:20] VITALS: BMI 37.5
[2018-02-05] MEDS ORDERED: Senokot S 8.6-50 MG TAB PO PRN (01:30)
[2018-02-05] MEDS ORDERED: Ondansetron PF 4 MG/2 ML Vial IVP PRN (01:30)
[2018-02-05] MEDS ORDERED: Acetaminophen 325 MG TAB PO PRN (01:30)
[2018-02-05 01:33] LABS: Troponin I Less than 0.010 ng/mL (< 0.028)
[2018-02-05] MEDS ORDERED: Ondansetron ODT 4 MG TAB PO PRN (02:24)
[2018-02-05] MEDS ORDERED: Ibuprofen 800 MG TAB PO PRN (02:24)
[2018-02-05] MEDS ORDERED: Dextrose 50% Abboject 50 ML SYRINGE SLOW IVP PRN (02:25)
[2018-02-05] MEDS ORDERED: Dextrose 5% in Water 1,000 ML IV PRN (02:25)
[2018-02-05] MEDS ORDERED: HumaLOG 300 UNITS/3 ML VIAL SC PRN (02:25)
--- NOTE | 2018-02-05 03:01 | HP ---
PRIMARY CARE PROVIDER: [facility]. CHIEF COMPLAINT: Palpitations. HISTORY OF PRESENT ILLNESS: Mr. Coleman is a pleasant 47-year-old gentleman, who was seen at [facility] on 02/05/2018. He was hospitalized at this facility in 07/2017 for supraventricular tachycardia and hypertensive ayan rgency as well as cardiomyopathy. He had a cardiac catheterization during that hospitalization, whic h showed normal coronaries. He was reportedly advised LifeVest by Cardiology Service, but left again st medical advice. He reports that he has had on and off episodes of palpitations. He cannot recall any aggravating or relieving factors. He reports retrosternal chest discomfort when he has the palpitations, but is cherri ble to describe it further. He denies any fevers or chills. He denies any nausea or vomiting. He d enies any abdominal pain. REVIEW OF SYSTEMS: All other systems reviewed and found to be negative. PAST MEDICAL HISTORY: Congestive heart failure, pancreatitis, diabetes mellitus, dyslipidemia, hyper tension, and arthritis. PAST SURGICAL HISTORY: None. PSYCHIATRIC HISTORY: Depression. SOCIAL HISTORY: The patient uses marijuana occasionally. He denies tobacco use or alcohol use. ALLERGIES: ATORVASTATIN. FAMILY HISTORY: The patient denies any family history of premature coronary artery disease. CURRENT MEDICATIONS: Coreg 25 mg 2 times a day, Lasix 40 mg daily, glyburide 5 mg 2 times a day, hyd ralazine 50 mg 3 times a day, ibuprofen 800 mg 3 times a day as needed, metformin 1000 mg 2 times a d ay, aspirin 81 mg daily, and Zofran p.r.n. PHYSICAL EXAMINATION: GENERAL: On examination, Mr. Coleman is awake and alert, not in acute distress. He is obese, with a B ME of 37.6. VITAL SIGNS: Blood pressure is 136/90, pulse 84, respiratory rate 16, and oxygen saturation 98% on r oom air. He is afebrile. EYES: No scleral icterus. No conjunctival pallor. ENT: Moist mucosal membranes, no oropharyngeal erythema or exudates. NECK: Supple, nontender, trachea is midline. RESPIRATORY: Accessory muscles of breathing are not active. Chest wall movements are symmetric bila terally. Lungs are clear to auscultation without wheeze, rhonchi or crepitations. CARDIOVASCULAR: S1 and S2 are heard, regular. Peripheral pulses palpable. No carotid bruit, no per icardial rub. ABDOMEN: Soft, nontender, bowel sounds are heard, no hepatomegaly, no splenomegaly. MUSCULOSKELETAL: Power is 5/5 in all 4 extremities. He has bilateral lower extremity edema. SKIN: No rashes or subcutaneous nodules. LYMPHATIC: No cervical lymphadenopathy. PSYCHIATRIC: Normal mood, normal affect, patient is oriented to person, place, and time. IMAGING AND LABORATORY DATA: Mr. Coleman's labs and investigations were reviewed. I reviewed his elec trocardiogram, which shows atrial tachycardia. I also reviewed his chest x-ray, which does not show any pulmonary infiltrates. He has an unremarkable CBC, D-dimer 0.36, mildly decreased sodium of 135, elevated glucose of 247, elevated globulin of 3.9, otherwise unremarkable comprehensive metabolic pr ofile, BNP mildly elevated at 108.7, magnesium mildly elevated at 2.7 and troponin I negative x2. Ur inalysis is positive for protein, but is otherwise negative. ASSESSMENT AND PLAN: Mr. Coleman is a pleasant 47-year-old gentleman, who was seen at [facility] on 02/05/2018. His problem list includes: 1. Palpitations: Mr. Coleman is presenting with palpitations. He had runs of atrial tachycardia in t emergency room. He is being admitted to the hospital for further management including telemetry m onitoring and Cardiology Service consultation. 2. Diabetes mellitus, type 2: We will start Accu-Cheks and insulin sliding scale. 3. Hypertension: We will resume home medications, monitor vital signs and titrate antihypertensives as needed. 4. Congestive heart failure: The patient has a history of systolic congestive heart failure. We wi ll continue diuresis. He does not appear to be in exacerbation. Many thanks for allowing me to participate in your patient's care. Please feel free to contact me wi th any questions or concerns. LEVEL OF RISK: High. LEVEL OF COMPLEXITY: High.
[2018-02-05 04:17] LABS: #Basophils 0.1 thou/uL (0.0-0.2); #Eosinphils 0.2 thou/uL (0.0-0.7); #Monocytes 0.7 thou/uL (0.11-0.59); #Neutrophils 3.7 thou/uL (1.40-6.50); %Basophils 1.1 % (0.0-1.0); %Eosinophils 2.7 % (0.0-10.0); %Lymphocytes 39.3 % (21.0-51.0); %Monocytes 8.8 % (0.0-10.0); %Neutrophils 48.1 % (42.0-75.0); Hemoglobin 13.5 g/dL (14.0-18.0); Mean Corpuscular HGB CONC 31.5 g/dL (32.0-36.0); Mean Corpuscular Hemoglobin 28.7 pg (27.0-31.0); Mean Corpuscular Volume 91.1 fL (78.0-98.0); Mean Platelet Volume 6.7 fL (7.4-10.4); Platelet Count 320 thou/uL (130-400); RBC Distribution Width 13.2 % (11.5-14.5); Red Blood Cell (RBC) Count 4.71 mill/uL (4.70-6.10); White Blood Cell (WBC) Count 7.7 thou/uL (4.8-10.8)
[2018-02-05 04:44] LABS: Anion Gap 10 mmol/L (10-20); BUN (Urea Nitrogen) 14 mg/dL (8.9-20.6); Calc. Creatinine Clearance 177 mL/min (70-130); Calcium 9.3 mg/dL (7.8-10.44); Carbon Dioxide 26 mmol/L (22-29); Chloride 102 mmol/L (98-107); Estimated GFR-MDRD Greater than 90; Glucose 239 mg/dL (70-105); Potassium 4.3 mmol/L (3.5-5.1); Sodium 134 mmol/L (136-145)
[2018-02-05] MEDS: hydrALAZINE 25 MG TAB PO SCH ×3 (08:26→20:40)
[2018-02-05] MEDS: Enoxaparin Sodium 40 MG/0.4 ML SYRINGE SC SCH (08:27)
[2018-02-05] MEDS: Furosemide 40 MG TAB PO SCH (08:27)
[2018-02-05] MEDS: glyBURIDE 5 MG TAB PO SCH ×2 (08:37→15:05)
[2018-02-05] MEDS: metFORMIN 500 MG TAB PO SCH ×2 (08:37→15:05)
[2018-02-05] MEDS: Carvedilol 25 MG TAB PO SCH ×2 (08:37→17:23)
[2018-02-05] MEDS ORDERED: Aspirin 325 MG TAB PO SCH (09:00)
--- NOTE | 2018-02-05 16:51 | CON ---
DATE OF CONSULTATION: 02/05/2018 HISTORY OF PRESENT ILLNESS: The patient unfortunately is a 47-year-old gentleman with history of severe cardiomyopathy who presents with rapid palpitations. The patient has known history of a cardiomyopathy. He was seen with supraventricular tachycardia in July of this year. He subsequently underwent a cardiac catheterization. He was found to have a severe decrease in left ventricular systolic function with normal coronary arteries. The patient declined to have a LifeVest. He was placed on medical therapy. The patient presented with recurrent palpitations. He was noted to be in SVT and received adenosine. The patient denies having any further palpitations. He reported having chest discomfort with the palpitations. PAST MEDICAL HISTORY: 1. Cardiomyopathy. 2. Diabetes mellitus. 3. Hypertension. 4. Arthritis. PAST SURGICAL HISTORY: None. SOCIAL HISTORY: He is a nonsmoker. FAMILY HISTORY: There is no strong family history of heart disease. MEDICATIONS: Coreg 25 b.i.d., Lasix 40 daily, glyburide 5 daily, hydralazine 50 t.i.d., metformin 1000 b.i.d., aspirin 81 daily. PHYSICAL EXAMINATION: GENERAL: This is an obese gentleman in no acute distress. VITAL SIGNS: Blood pressure 157/79. NECK: No jugular distention, no carotid bruits. LUNGS: Clear to auscultation. HEART: Regular rate and rhythm, normal S1, S2. ABDOMEN: Distended. EXTREMITIES: Showed no edema. VASCULAR: Radial pulses are 2+. LABORATORY DATA AND IMAGING DATA: White blood count 7.7, hemoglobin 13.5, hematocrit 42.9, platelets were 320, troponin was less than 0.01. Sodium 134, potassium 4.3, chloride 102, bicarbonate 26, BUN 14, creatinine 0.9, glucose 239. EKG revealed him to have supraventricular tachycardia. classroom monitor revealed 2:1 AV block, probably Mobitz I. IMPRESSION: 1. Supraventricular tachycardia. 2. Bradycardia. 3. History of severe nonischemic cardiomyopathy. 4. Hypertension. 5. Diabetes mellitus. 6. Obesity. PLAN: This gentleman developed recurrent SVT with evidence of a second-degree AV block. I Would recommend that he undergo ablation. If the patient is agreeable, we will have EP proceed with evaluation during this hospitalization. We will follow this patient with you. EWA
[2018-02-05] MEDS: Lisinopril 10 MG TAB PO SCH ×2 (20:39→20:44)
[2018-02-05] MEDS ORDERED: Lisinopril 10 MG TAB PO SCH (21:00)
--- NOTE | 2018-02-06 06:34 | CON ---
ELECTROPHYSIOLOGY CONSULTATION REPORT DATE OF CONSULTATION: 02/05/2018 HISTORY OF PRESENT ILLNESS: I am seeing Mr. 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 His problems are: 1. Paroxysmal supraventricular tachycardia. A. Admitting a narrow complex tachycardia, documented by EKG at a rate of 170 beats per minute with short RP pattern suggestive of AVNRT. 2. Chronic systolic congestive heart failure with nonischemic cardiomyopathy. A. Left heart catheterization on 08/12/2017, demonstrates normal coronary arteries. B. 2D echo from 08/20/2017 with LVEF of 25%-30%. C. 2D echo from 12/25/2015, showed LVEF of 30%-35%. 3. Risk factors including diabetes, hypertension. ALLERGIES: ATORVASTATIN. HOME MEDICATIONS: Include Coreg 25 mg twice a day, Lasix, glyburide 5 mg twice a day, hydralazine 50 mg 3 times a day, ibuprofen 800 mg three times a day as needed, metformin 1000 mg 2 times a day, asp irin 81 mg a day, Zofran p.r.n. SUBJECTIVE: Mr. Coleman was admitted with his palpitations. This has been sustained enough to prompti ng current admission. He has had no dizziness, loss of consciousness, though he denies chest pains. No fever, chills, nausea, or vomiting. No abdominal discomfort. Rest of twelve point system is oth erwise unremarkable. PAST MEDICAL HISTORY: As above. SOCIAL HISTORY: Patient denies smoking, EtOH, or drug abuse. FAMILY HISTORY: Noncontributory. OBJECTIVE DATA: VITAL SIGNS: Blood pressure is 135/80, heart rate 90, respirations 20, temperature 98 degrees Fahren heit. GENERAL: Alert and oriented man, in no apparent distress. NECK: Supple. Jugular veins not distended. CHEST: Coarse without crackles. CARDIOVASCULAR: Heart sounds are regular to rate and rhythm. No murmur or gallop. ABDOMEN: Benign. Bowel sounds positive. EXTREMITIES: Lower extremity without edema, clubbing, or cyanosis. Pulses are adequate. NEUROLOGIC: Patient nonfocal. MUSCULOSKELETAL: No joint swelling or deformities. SKIN: Without rash. DATABASE: The EKGs reviewed, again revealing a narrow complex SVT with T-waves segment of the QRS at a rate of 170 beats per minute. Subsequent EKG reveals sinus rhythm at 100 beats per minute. LABORATORY DATA: White blood cell count 8.9, hemoglobin 15.2, platelet count is 387,000 on admission . Sodium 134, potassium 4.3, BUN is 14, creatinine 0.9. INR is 0.36. ASSESSMENT AND PLAN: Mr. Coleman is a 47-year-old man with history of congestive heart failure and non ischemic cardiomyopathy. He has a narrow complex supraventricular tachycardia, which has prompted th e current admission and it was well documented by EKG. The EKG is suggestive of possible AVNRT as a mechanism. I discussed the alternative diagnosis as well including atrial tachycardia and AVNRT as well. I have discussed the options including medications, albeit at this point, was difficult to increase his bet a blockers further had sporadic short duration of 2:1 AV block also observe in telemetry. We discussed the option of ablation and he is interested in proceeding with that. Risk of infection, bleeding, bradycardia, requiring pacing tamponade was discussed. Hence his presence of cardiomyopathy likely, we will test inducibility of ventricular tachyarrhythmia s as well. Hence a longstanding cardiomyopathy on his LVEF medically improved. He may be considered for an ICD therapy after repeat echocardiogram is performed.
[2018-02-06] MEDS: hydrALAZINE 25 MG TAB PO SCH (08:41)
[2018-02-06] MEDS: Furosemide 40 MG TAB PO SCH (08:41)
[2018-02-06] MEDS: glyBURIDE 5 MG TAB PO SCH (08:41)
[2018-02-06] MEDS: Carvedilol 25 MG TAB PO SCH (08:41)
[2018-02-06] MEDS: Enoxaparin Sodium 40 MG/0.4 ML SYRINGE SC SCH (08:42)
[2018-02-06] MEDS: metFORMIN 500 MG TAB PO SCH (08:46)
[2018-02-06 11:29] VITALS: BP 133/78; TEMP 99.5
--- NOTE | 2018-02-06 13:46 | DIS ---
DATE OF ADMISSION: 02/04/2018 DATE OF DISCHARGE: 02/06/2018 PRIMARY CARE PHYSICIAN: [facility]. CONSULTANTS: Dr. Guzman, Dr. Panchal. PROCEDURES: The patient had a chest x-ray that showed minimal cardiomegaly with no other acute process. DISCHARGE DIAGNOSES: 1. Recurrent supraventricular tachycardia with evidence of second degree AV block. 2. Bradycardia. 3. History of severe nonischemic cardiomyopathy. 4. Hypertension. 5. Diabetes mellitus. 6. Obesity. REVIEW OF SYSTEMS: The patient was examined and seen on day of discharge. Constitutional: Historian denies chills or fever. Denies any changes to vision. Denies eye pain. ENT: Denies any changes to the ears, nose or throat. Denies any pain, rhinorrhea. Cardiovascular: The patient denies any current chest pain. Did report some palpitations, diaphoresis, but reports none today. Respiratory: Denies any shortness of breath or cough. Gastrointestinal: Denies any abdominal pain, constipation, diarrhea, nausea, vomiting. Genitourinary: Male, denies any dysuria, hematuria. Musculoskeletal : Denies any myalgias, neuralgias. Skin: Denies any rashes, skin changes. Neurologic: Denies any focal sensory or musculoskeletal deficits. Hematologic : Denies any abnormal blood clotting. PHYSICAL EXAMINATION: VITAL SIGNS: Temperature is 97.2, pulse is 87, respirations are 20, pulse ox is 98% on room air, blood pressure 145/77. CONSTITUTIONAL: Patient is lying in bed, is in no acute distress, oriented to person, place and time. HEAD: Head exam is normal. Head is atraumatic, normocephalic. EYES: eyelids are normal to inspection. Pupils are equally round and reactive to light. Extraocular muscles are intact. ENT: Mucous membranes are moist. NECK: Normal range of motion. Trachea is midline. RESPIRATORY/CHEST: Breath sounds are clear. No respiratory distress. CARDIOVASCULAR: Heart sounds are normal, S1, S2. ABDOMEN: Soft, nontender. No peritoneal signs. BACK: Normal range of motion. Denies any tenderness. EXTREMITIES: Upper extremity: Normal range of motion. Sensation and pulses are intact. Lower extremity: Normal range of motion. Sensation intact. Pedal pulses are normal. NEUROLOGIC: The patient is alert to person, place and time. No focal sensory or motor deficits are noted. SKIN: Warm, dry, normal in color. PSYCHIATRIC: The patient is in normal affect. HOSPITAL COURSE: The patient presented to the emergency room on 02/05/2018 for palpitations. The patient reported he had on and off episodes of palpitations and was hospitalized in this facility on 07/2017 for SVT and hypertensive emergency as well as cardiomyopathy. He has had a cardiac catheterization in July which showed normal coronaries. He was reportedly advised for a LifeVest by cardiac services, but left against medical advice. Because of the patient's cardiac history, he was admitted to the observation unit for further management. The patient was seen by both Dr. Guzman and Dr. Panchal who recommended an ablation. Dr. Guzman added lisinopril, but the patient refused first dose last night stating that he had taken it in the past and experienced angioedema. Dr. Panchal consulted with the patient and recommended to have an ablation and the patient this morning refused and asked to go home. Dr. Panchal noted he had some narrow complex supraventricular tachycardia, possible atrial tachycardia. During admission, he was noted to have some 2:1 AV block. During rounds this morning, the patient stated he did not want to undergo the ablation and preferred to be medically managed and to go home. Dr. Guzman was updated and state that the patient was free to go home and to follow up with him in the clinic. Discharge plan was discussed with Dr. Martin, who agreed. Therefore, patient was discharged home. He was continued on his home medications which include Coreg 25 mg p.o. b.i.d., Lasix 40 mg p.o. daily, glyburide 5 mg p.o. b.i.d., hydralazine 50 mg p.o. t.i.d., Motrin 800 mg p.o. t.i.d., Imdur 30 mg p.o. daily, metformin 1000 mg p.o. b.i.d., aspirin 81 mg p.o. daily. ALLERGIES: LIPITOR and LISINOPRIL. DISPOSITION CONDITION: Stable. DISCHARGE INSTRUCTIONS: Patient will be discharged home. Referral, patient is to follow up with the [facility] within the next week. Follow up with Dr. Guzman in the next 2-[address] [facility]
== END 2018-02-06 12:23 | disposition home or self-care (01) ==
LOC: ERS 17:31 → 2SW 21:22
PROVIDERS: ADMIT Family Medicine; ATTEND Family Medicine
DX: I47.1 Supraventricular tachycardia (principal); I11.0 Hypertensive heart disease with heart failure; I50.9 Heart failure, unspecified; E11.9 Type 2 diabetes mellitus without complications; E66.9 Obesity, unspecified; I42.8 Other cardiomyopathies; Z88.8 Allergy status to other drugs, medicaments and biological substances; Z79.82 Long term (current) use of aspirin; Z79.899 Other long term (current) drug therapy; Z79.84 Long term (current) use of oral hypoglycemic drugs
CPT/HCPCS: 36415; 36416; 71045; 80048; 80053; 81003; 81015; 82550; 82553; 83735; 83880; 84484; 85025; 85379; 93005; 96365; 96372; 96375; G0378; J0153; J1650; J2405

== ENCOUNTER 2018-03-23 09:20 | Inpatient (IN) | payer SELFPAY ==
[2018-03-23] MEDS ORDERED: Adenosine 6 MG/2 ML VIAL ONE (09:36)
[2018-03-23 09:57] LABS: #Eosinphils 0.2 thou/uL (0.0-0.7); #Lymphocytes 2.8 thou/uL (1.20-3.40); #Monocytes 0.6 thou/uL (0.11-0.59); #Neutrophils 4.8 thou/uL (1.40-6.50); %Basophils 0.5 % (0.0-1.0); %Eosinophils 2.4 % (0.0-10.0); %Lymphocytes 33.4 % (21.0-51.0); %Monocytes 6.8 % (0.0-10.0); %Neutrophils 56.9 % (42.0-75.0); Hemoglobin 13.3 g/dL (14.0-18.0); Mean Corpuscular HGB CONC 32.8 g/dL (32.0-36.0); Mean Corpuscular Hemoglobin 29.5 pg (27.0-31.0); Mean Platelet Volume 7.3 fL (7.4-10.4); Platelet Count 332 thou/uL (130-400); Red Blood Cell (RBC) Count 4.49 mill/uL (4.70-6.10); White Blood Cell (WBC) Count 8.4 thou/uL (4.8-10.8)
[2018-03-23 10:09] LABS: ALT (SGPT) 42 U/L (8-55); AST (SGOT) 40 U/L (5-34); Albumin 3.9 g/dL (3.5-5.0); Alkaline Phosphatase 98 U/L (40-150); Anion Gap 14 mmol/L (10-20); BUN (Urea Nitrogen) 12 mg/dL (8.9-20.6); Bilirubin, Total 0.4 mg/dL (0.2-1.2); Calc. Creatinine Clearance 0 mL/min (70-130); Calcium 9.3 mg/dL (7.8-10.44); Carbon Dioxide 23 mmol/L (22-29); Chloride 104 mmol/L (98-107); Estimated GFR-MDRD Greater than 90; Globulin 2.9 g/dL (2.4-3.5); Glucose 236 mg/dL (70-105); Magnesium 1.8 mg/dL (1.6-2.6); Potassium 4.8 mmol/L (3.5-5.1); Protein, Total 6.8 g/dL (6.0-8.3); Sodium 136 mmol/L (136-145)
--- NOTE | 2018-03-23 10:36 | RAD ---
PORTABLE CHEST ONE VIEW: Date: 03-23-18 Time: 10:09 a.m. History: Tachycardia. FINDINGS: Comparison made with exam of 02-04-18. The heart size is normal. The lungs are expanded without focal areas of consolidation, pneumothoraces or pleural effusions. There are degenerative changes in the spine. IMPRESSION: No acute process. POS: OFF
[2018-03-23 17:07] VITALS: BMI 37.6
[2018-03-23] MEDS ORDERED: Ondansetron ODT 4 MG TAB PO PRN (18:14)
[2018-03-23] MEDS ORDERED: Senokot S 8.6-50 MG TAB PO PRN (18:14)
[2018-03-23] MEDS ORDERED: Ondansetron PF 4 MG/2 ML Vial IVP PRN (18:14)
[2018-03-23] MEDS ORDERED: Nitroglycerin 0.4 MG TAB (25 Tab Bottle) PO PRN (18:14)
[2018-03-23] MEDS ORDERED: Acetaminophen 325 MG TAB PO PRN (18:14)
[2018-03-23] MEDS ORDERED: Calcium Carbonate 500 MG ChewTAB PO PRN (18:14)
[2018-03-23] MEDS ORDERED: Dextrose 50% Abboject 50 ML SYRINGE SLOW IVP PRN (18:17)
[2018-03-23] MEDS ORDERED: hydrALAZINE 20 MG/ML VIAL SLOW IVP PRN (18:17)
[2018-03-23] MEDS ORDERED: Insulin Regular 300 UNITS/3 ML VIAL SC PRN ×2 (18:17)
[2018-03-23] MEDS ORDERED: Dextrose 5% in Water 1,000 ML IV PRN (18:17)
[2018-03-23] MEDS ORDERED: Magnesium 2 GM/50 ML 2 GM in Premix Bag 1 BAG IVPB SCH (18:30)
[2018-03-23] MEDS ORDERED: Carvedilol 25 MG TAB PO SCH (18:30)
--- NOTE | 2018-03-23 19:06 | HP ---
PRIMARY CARE PHYSICIAN: [facility]. PRIMARY INFORMATICA DEVELOPER: Dr. Cm Guzman. CHIEF COMPLAINT: Lightheadedness, dizziness with palpitations. HISTORY OF PRESENT ILLNESS: The patient is a 48-year-old male with chronic systolic heart failure, diabetes mellitus type 2, hypertension, and supraventricular tachycardia in the past, presented to the emergency room from Dr. Guzman' office for palpitations. The patient was at Dr. Guzman' office for routine followup. He was found to have heart rate in 160s. He also felt lightheaded, dizzy, along with some nausea. He had shortness of breath, mainly on mild exertion. No chest pain, leg swelling, abdominal distention, or syncope reported. In the emergency room, initial vital signs showed temperature 98.2, respirations 17, pulse rate of 155, blood pressure of 94/75, O2 saturation 96% on room air. His EKGs showed a supraventricular tachycardia. He received adenosine 6 mg; after which, he converted to sinus rhythm. The patient denies any drug use. He also denies any excessive caffeine use. PAST MEDICAL HISTORY: 1. Chronic systolic heart failure. 2. History of recurrent supraventricular tachycardia. 3. Hypertension. 4. Diabetes mellitus, type 2. 5. Obesity with a BMI of 37.6. 6. History of pancreatitis. 7. Anxiety and depression. PAST SURGICAL HISTORY: Reviewed with the patient and none. SOCIAL HISTORY: The patient currently lives at home. Denies current use of smoking. He has a history of cannabis abuse in the past. PAST FAMILY HISTORY: Negative for premature coronary artery disease. ALLERGIES: THE PATIENT IS ALLERGIC TO LIPITOR AND LISINOPRIL. CURRENT HOME MEDICATIONS: 1. Carvedilol 25 mg b.i.d. 2. Lasix 40 mg daily. 3. Glyburide 2.5 mg b.i.d. 4. Hydralazine 50 mg t.i.d. 5. Motrin 800 mg b.i.d. 6. Imdur ER 30 mg daily. 7. Metformin 1000 mg b.i.d. 8. Aspirin 81 mg daily. REVIEW OF SYSTEMS: All other review of systems was reviewed and was found negative. PHYSICAL EXAMINATION: VITAL SIGNS: As discussed above. GENERAL: A 48-year-old male, in no apparent distress, shortness of breath has improved. HEENT: Head, atraumatic and normocephalic. Sclerae are anicteric. Moist mucous membranes. No oral lesion. NECK: Supple. No JVD. No carotid bruit appreciated. LUNGS: Clear to auscultation bilaterally with few rales at bases. No accessory muscle use. No significant wheezing. HEART: S1 and S2 present. Regular rate and rhythm. 2/6 systolic murmur over the mitral area. ABDOMEN: Soft, nontender. Bowel sounds present. EXTREMITIES: No edema or calf tenderness. NEUROLOGIC: Grossly nonfocal. Moves all 4 extremities. PSYCHIATRY: Alert, awake, and oriented x3. SKIN: Warm and dry. LYMPH NODE: No palpable lymph nodes in the neck. PERIPHERAL/VASCULAR: Radial pulses palpable bilaterally. MUSCULOSKELETAL: No joint swelling or tenderness. LABORATORY DATA: Troponin negative. BNP 168, BUN 12, creatinine 0.93. WBC 8.4 with hemoglobin 13.3, hematocrit 40.4, platelets 332. DIAGNOSTIC DATA: Chest x-ray by my review was negative for infiltrate. Echocardiogram earlier this year showed left ventricular ejection fraction 25% to 30% with diastolic dysfunction. Moderate mitral regurgitation and mild tricuspid regurgitation. Cardiac catheterization earlier this year showed normal coronaries. IMPRESSION: 1. Supraventricular tachycardia converted to sinus rhythm after adenosine. 2. Chronic systolic and diastolic heart failure secondary to nonischemic cardiomyopathy. 3. Hypertension. 4. Diabetes mellitus, type 2. 5. Obesity with a BMI of 37.6. 6. Depression without any suicidal ideation. 7. Mild chronic anemia. 8. Chronic nonsteroidal anti-inflammatory drugs use. 9. History of cannabis abuse. 10. Relative hypomagnesemia. PLAN: The patient will be monitored on the telemetry unit. We will continue carvedilol 25 mg b.i.d. along with Lasix, hydralazine, and nitrates. Electrophysiology will be consulted. His magnesium is 1.8. We will give him 2 g IV magnesium. The patient will be kept n.p.o. past midnight. The patient was counseled on congestive heart failure. Plan of care was discussed with the patient in detail. He stated understanding. Job ID: [id number]
[2018-03-23] MEDS: Famotidine 20 MG TAB PO SCH (20:43)
[2018-03-23] MEDS: hydrALAZINE 25 MG TAB PO SCH (20:43)
--- NOTE | 2018-03-23 22:15 | CON ---
DATE OF CONSULTATION: 03/23/2018 TYPE OF CONSULTATION: Electrophysiology consultation. REASON FOR CONSULTATION: SVT. HISTORY OF PRESENT ILLNESS: Mr. Coleman is a 48-year-old gentleman, who was initially referred to our service as an inpatient at [facility] in January of this year for SVT. At that point, he was found to have what was likely an AVNRT and recommendation was made for EP study and ablation. The patient had left the hospital before the ablation was performed, leaving against medical advice. This morning, he was at Dr. Guzman's office for routine followup regarding his diagnosis of SVT one month ago and when he arrived, his heart rate was rapid at 160 beats per minute range and was sent to the emergency room for evaluation. He had associated symptoms of dizziness and headache. His symptoms were sudden in onset. He also had some shortness of breath. He was chemically cardioverted with 6 mg of adenosine and EP consultation was called in. He is currently in the observation unit. He is resting comfortably. He has not had any further SVT that is on telemetry monitoring. He has known history of chronic systolic heart failure with nonischemic cardiomyopathy and severely depressed ejection fraction. Left ventricular ejection fraction of 25% to 30% by 2-dimensional echocardiogram on 08/20/2017. Currently, he denies any heart racing, palpitations, chest pain, pressure, syncope, near syncope, stroke or stroke-like symptoms. REVIEW OF SYSTEMS: A 12-point review of systems was conducted, is negative except that listed above in the HPI. His symptoms resolved with cardioversion. PAST MEDICAL HISTORY: 1. Paroxysmal supraventricular tachycardia, short RP interval suggestive of AVNRT with rates of 160-170 beats per minute narrow complex tachycardia. 2. Chronic systolic heart failure, nonischemic cardiomyopathy, ejection fraction 25% to 30%. 3. Left heart catheterization on 08/12/2017 demonstrating normal coronary arteries. 4. Hypertension. 5. Diabetes. HOME MEDICATIONS: 1. Coreg 25 mg b.i.d. 2. Lasix. 3. Glyburide 5 mg b.i.d. 4. Hydralazine 50 mg t.i.d. 5. Ibuprofen 300 mg t.i.d. as needed. 6. Metformin 1000 mg b.i.d. 7. Aspirin 81 mg daily. 8. Zofran as needed. SOCIAL HISTORY: Negative for smoking, alcohol, or illicit drug use. FAMILY HISTORY: Noncontributory. OBJECTIVE: Most recent vital signs are 122/82, pulse 96, respirations 16, oxygen is 96% on room air, temperature 97.6. LABORATORY DATA: Hemoglobin 13.3, platelet count 332. Chemistry, potassium 4.8 , BUN 12, creatinine 0.93, magnesium 1.8, BNP 168. Troponin I is negative. PHYSICAL EXAMINATION: GENERAL: The patient is alert and oriented, in no apparent distress. NECK: Supple. Jugular veins are not distended. CHEST: Coarse without crackles, wheezes, or rhonchi. RESPIRATIONS: Even and unlabored with good bilateral excursion. CARDIOVASCULAR: Heart rate is regularly regular without murmur, rub, or gallop. ABDOMEN: Overall exam is benign, obese, positive bowel sounds throughout. No palpable masses. EXTREMITIES: Warm and dry to touch without clubbing, cyanosis, or edema. NEUROLOGIC: Grossly intact and nonfocal. Gait was not assessed. DATABASE: EKGs were reviewed, once again revealing a narrow complex SVT with short MO interval suggestive of AVNRT. Current EKG reveals sinus rhythm between 80 and 100 beats per minute. IMPRESSION: 1. Recurrent paroxysmal narrow complex supraventricular tachycardia, likely atrioventricular latasha reentry tachycardia as a mechanism. 2. Nonischemic cardiomyopathy. 3. Chronic systolic heart failure. RECOMMENDATIONS: We discussed treatment options for his SVT including medical management versus ablation. Alternative diagnoses include atrial tachycardia, but more likely AVNRT. If truly an AVNRT, then definite recommendation for ablation versus medical management. We discussed the risks, benefits, and alternatives. Risks included hematoma, bleeding at the groin site, perforation of the heart, cardiac arrhythmias and bradycardiac in addition to requirement for pacing and tamponade. With his presence of cardiomyopathy as well, we will test inducibility for ventricular arrhythmias as well. He has a long-standing history of cardiomyopathy with his LVEF unimproved. He may be considered for an ICD after EP study or after repeat echocardiograms performed. Thank for allowing us to participate in the care of this patient. We will proceed with EP study and ablation tomorrow morning at approximately 10:00 a.m. pending anesthesia availability and lab availability. VT inducibility will also be assessed. This was discussed with the patient and requests that consent to be obtained. We will keep him n.p.o. after midnight. Job ID: [id number] MTDShanna
[2018-03-24] MEDS: hydrALAZINE 25 MG TAB PO SCH ×3 (05:38→21:00)
[2018-03-24] MEDS: Famotidine 20 MG TAB PO SCH ×2 (05:39→21:01)
[2018-03-24] MEDS: Carvedilol 25 MG TAB PO SCH ×2 (05:39→17:19)
[2018-03-24] MEDS: Furosemide 40 MG TAB PO SCH (05:40)
--- NOTE | 2018-03-24 09:28 | PDOC.PN ---
- Subjective Encounter Start Date: 03/24/18 Encounter Start Time: 09:26 Mr. Coleman was seen today in follow-up of SVT. He does not have any complaints this morning. He denies chest pain or shortness of breath. He denies feeling dizzy or lightheaded. - Objective Resuscitation Status - Order Detail: 03/23/18 18:14 Resuscitation Status Routine Resuscitation Status: FULL: Full Resuscitation MAR Reviewed: Yes Vital Signs & Weight: Vital Signs (12 hours) Temp Pulse Resp BP BP Pulse Ox 03/24/18 07:46 98.3 F 82 20 121/59 L 94 L 03/24/18 07:10 97 03/24/18 05:38 82 163/82 H 03/24/18 04:13 98.5 F 82 20 163/82 H 97 03/23/18 23:15 99.2 F 90 18 146/85 H 98 Weight Weight 275 lb 4.8 oz I&O: 03/23/18 03/24/18 03/25/18 06:59 06:59 06:59 Intake Total 100 Output Total 500 Balance -400 Result Diagrams: 03/23/18 09:37 03/23/18 09:37 Additional Labs: Accuchecks 03/24/18 03/23/18 03/23/18 05:38 21:08 17:22 POC Glucose 134 H 118 H 179 H Phys Exam - Physical Examination HEENT: PERRLA Respiratory: no wheezing, no rales, no rhonchi, clear to auscultation bilateral Cardiovascular: RRR, no significant murmur, no rub Gastrointestinal: soft, non-tender, no distention, positive bowel sounds Musculoskeletal: no edema Dx/Plan (1) Supraventricular tachycardia Code(s): I47.1 - SUPRAVENTRICULAR TACHYCARDIA Status: Acute (2) Chronic systolic heart failure Code(s): I50.22 - CHRONIC SYSTOLIC (CONGESTIVE) HEART FAILURE Status: Chronic (3) Hypertension Code(s): I10 - ESSENTIAL (PRIMARY) HYPERTENSION Status: Chronic Qualifiers: (4) DM2 (diabetes mellitus, type 2) Status: Chronic Qualifiers: Chronic kidney disease stage: unspecified stage - Plan * SVT- plan is for Ablation today * Chronic systolic heart failure- compensated * HTN - blood pressure is a bit labile- will continue to monitor. * DM- blood glucose is stable
[2018-03-24] MEDS ORDERED: Heparin 10,000 UNITS/1 ML VIAL ONE (11:07)
[2018-03-24] MEDS ORDERED: KETAMINE 100 MG/ML (5ML VIAL) ONE (12:08)
[2018-03-24] MEDS ORDERED: Midazolam HCl 2 mg/2 ml Vial ONE (12:08)
[2018-03-24] MEDS ORDERED: PROPOFOL 20 ML ONE (13:06)
[2018-03-24] MEDS ORDERED: Isoproterenol 0.2 MG/1 ML AMP ONE ×2 (13:25)
--- NOTE | 2018-03-24 15:22 | PDOC.CTH ---
Cardiology Progress Note - Subjective EP PROGRESS NOTE: Seen for SVT and cardiomyopathy. Just finished EPS and underwent ablation for AVNRT. Also easily inducible for ventricular arrhythmias. Resting comfortably in bed post procedure. - Objective Vital Signs Temp Pulse Resp BP BP Pulse Ox 03/24/18 07:46 98.3 F 82 20 121/59 L 94 L 03/24/18 07:10 97 03/24/18 05:38 82 163/82 H 03/24/18 04:13 98.5 F 82 20 163/82 H 97 Weight 275 lb 4.8 oz 03/23/18 03/24/18 03/25/18 06:59 06:59 06:59 Intake Total 100 Output Total 500 Balance -400 - Physical Examination General/Neuro: alert & oriented x3, NAD Neck: carotid US brisk, no JVD present Lungs: CTA, unlabored respirations Heart: PMI normal, RRR Abdomen: NT/ND, soft - Telemetry Telemetry Rhythm: SR - Labs Result Diagrams: 03/23/18 09:37 03/23/18 09:37 Troponin/CKMB Troponin I 0.014 ng/mL (< 0.028) 03/23/18 09:37 - Assessment/Plan 1. AVNRT, recurrent -s/p ablation 2. Cardiomyopathy -longstanding, severely reduced EF <35% - 3. Morbid obesity Inducible for VT during EPS. Will recheck EF with echo today. If EF<35% plan is for ICD tomorrow. NPO after midnight. Spoke bedside with patient who is considering his options for now. seed analysis laboratory assistant aware. R/B/A discussed at length. All questions answered. Pending his final decision for or against ICD.
[2018-03-24] MEDS ORDERED: Acetaminophen/Codeine 30-300mg Tablet PO PRN ×2 (16:45)
[2018-03-24] MEDS ORDERED: HYDROcodone/Acetaminophen 5/325 mg Tablet PO PRN (16:45)
--- NOTE | 2018-03-24 19:59 | OP ---
DATE OF PROCEDURE: 03/24/2018 TYPE OF REPORT: ELECTIVE ELECTROPHYSIOLOGY STUDY AND RADIOFREQUENCY ABLATION REPORT REFERRING PHYSICIAN: Dr. Pagan as well as Dr. Guzman. REASON FOR PROCEDURE: Mr. Coleman is a 48-year-old man with prior history of cardiomyopathy, reduced LVEF. He is presenting with recurrent SVTs, which are adenosin termianted. He is here for EP study, evaluate inducible arrhythmias and possible ablation therapies. DESCRIPTION OF PROCEDURE: The patient received propofol for deep sedation. After adequate level of sedation achieved, the both femoral veins were prepped and draped, and anesthetized using subcutaneous lidocaine and with ultrasound guidance, a 6 and 8-Salvadorean sheath introduced into the left side and 8-Salvadorean sheath into the right side. Following that, on the left side, a decapolar and then octapolar catheter were advanced to the right ventricle, His bundle, right atrium, and CS positions. Basic EP study was performed revealing the following findings. Baseline rhythm was sinus rhythm at a cycle length of 693 milliseconds, UT 168, QRS 73, QT 369, AH 106, HV 63. AV Wenckebach cycle length 400 milliseconds. Retrograde Wenckebach cycle 360 milliseconds. AV latasha ERP 600/300 milliseconds. The dual AV latasha physiology was observed. The concentric retrograde VA conduction is seen. No evidence of accessory pathway is present. With access to my testing, we were able to induce a narrow complex one-to-one tachycardia with very short VA timing suggestive of AVNRT. This was re-inducible with burst atrial pacing as well, but it was not sustained. Hence, the definite dual AV node physiology, decision was made to proceed with slow pathway modification. A standard 4-mm Biosense Pacheco ablation catheter was advanced to the right atrium and right atrial 3D map was obtained, delineating the His bundle and CS locations as well. Following that, multiple ablation lesions were placed at the slow pathway area with 40 lepe average settings, maximum 42 lepe average of 35 was delivered. The cutoff was 50 degrees, average of 42 degree Celsius was delivered. A total of 4 lesions placed at a total time of 3 minutes and 9 seconds. During the last ablation which delivered for about a minute, persisting junctional rhythm was seen, no AV block was observed. After this was completed, burst atrial pacing was unable to re-induce the AV latasha reentry tachycardia. A Ventricular extra-stim protocol was performed. Decrementing the PVCs to 600/280, 230, 210. At this point, a monomorphic ventricular flutter / ventricular tachycardia was induced, which sustained and was hemodynamically significant to be with cycle length of about 170 milliseconds. This was successfully shock terminated. Following that, after recovery, Isuprel was administered at 4 mcg/kg/min. Burst atrial pacing did not re-induce the tachyarrhythmia at this time. CONCLUSION: 1. Successful induction of AV latasha reentry tachycardia. 2. Slow pathway observed during the case. 3. Slow pathway modification was performed, eliminating the inducibility of AV latasha reentry tachycardia. Residual slow pathway conduction and echo beats still observed. 4. Ventricular flutter/tachycardia was induced with V. extrastimuli requiring shock termination. PLAN: Continue observation of arrhythmias, standard heart failure therapy, consider ICD implant. Job ID: [id number] [facility]
[2018-03-24] MEDS: HYDROcodone/Acetaminophen 5/325 mg Tablet PO PRN (20:58)
[2018-03-25] MEDS: Famotidine 20 MG TAB PO SCH ×2 (08:31→21:52)
[2018-03-25] MEDS: hydrALAZINE 25 MG TAB PO SCH ×3 (08:31→21:52)
[2018-03-25] MEDS: Carvedilol 25 MG TAB PO SCH ×2 (08:31→16:46)
[2018-03-25] MEDS: Furosemide 40 MG TAB PO SCH (08:31)
[2018-03-25] MEDS ORDERED: CEFAZOLIN 2 GM/50 ML BAG ONE (09:32)
--- NOTE | 2018-03-25 09:56 | PDOC.PN ---
- Subjective Encounter Start Date: 03/25/18 Encounter Start Time: 09:54 Mr. Coleman was seen today in follow-up of SVT. He is post ablation. He does not have any complaints. He denies chest pain or difficulty breathing - Objective Resuscitation Status - Order Detail: 03/23/18 18:14 Resuscitation Status Routine Resuscitation Status: FULL: Full Resuscitation MAR Reviewed: Yes Vital Signs & Weight: Vital Signs (12 hours) Temp Pulse Resp BP BP Pulse Ox 03/25/18 08:31 88 03/25/18 07:28 98.8 F 88 20 151/83 H 95 03/25/18 04:15 88 18 127/80 96 03/24/18 23:31 98.6 F 86 16 145/80 H 97 Weight Weight 275 lb 4.8 oz I&O: 03/24/18 03/25/18 03/26/18 06:59 06:59 06:59 Intake Total 100 300 Output Total 500 500 Balance -400 -200 Result Diagrams: 03/23/18 09:37 03/23/18 09:37 Additional Labs: Accuchecks 03/25/18 03/24/18 03/24/18 06:04 20:48 16:46 POC Glucose 147 H 184 H 146 H Phys Exam - Physical Examination HEENT: PERRLA Respiratory: no wheezing, no rales, no rhonchi, clear to auscultation bilateral Cardiovascular: RRR, no significant murmur, no rub Gastrointestinal: soft, non-tender, no distention, positive bowel sounds Musculoskeletal: no edema, pulses present Dx/Plan (1) Supraventricular tachycardia Code(s): I47.1 - SUPRAVENTRICULAR TACHYCARDIA Status: Acute (2) Chronic systolic heart failure Code(s): I50.22 - CHRONIC SYSTOLIC (CONGESTIVE) HEART FAILURE Status: Chronic (3) Hypertension Code(s): I10 - ESSENTIAL (PRIMARY) HYPERTENSION Status: Chronic Qualifiers: (4) DM2 (diabetes mellitus, type 2) Status: Chronic Qualifiers: Chronic kidney disease stage: unspecified stage - Plan * SVT- he is post ablation * Patient has a Cardiomyopathy with inducible Ventricular Tachycardia- a repeat Echo has been ordered to assess his EF. He may be a candidate for AICD. This was discussed with the patient and his questions answered- He now says he will be agreeable to have the AICD if needed * DM- blood glucose is stable * HTN- blood pressure is borderline, but in acceptable range
[2018-03-25] MEDS ORDERED: Propofol 1,000 MG/100 ML VIAL IV ONE (11:07)
[2018-03-25] MEDS ORDERED: Fentanyl 100 MCG/2 ML VIAL ONE (11:07)
--- NOTE | 2018-03-25 11:44 | PDOC.CTH ---
Cardiology Progress Note - Subjective EP PROGRESS NOTE:03/25/18 Seen for SVT and cardiomyopathy. Feels well today. Had EPS and underwent ablation for AVNRT yesterday. Also easily inducible for ventricular arrhythmias. Had 2D echo this AM. No cardiac concerns this AM. - Objective Vital Signs Temp Pulse Resp BP BP Pulse Ox 03/25/18 08:31 88 03/25/18 07:28 98.8 F 88 20 151/83 H 95 03/25/18 04:15 88 18 127/80 96 Weight 275 lb 4.8 oz 03/24/18 03/25/18 03/26/18 06:59 06:59 06:59 Intake Total 100 300 Output Total 500 500 Balance -400 -200 - Physical Examination General/Neuro: alert & oriented x3, NAD Neck: carotid US brisk, no JVD present Lungs: CTA, unlabored respirations Heart: PMI normal, RRR Abdomen: NT/ND, soft - Telemetry Telemetry Rhythm: SR - Labs Result Diagrams: 03/23/18 09:37 03/23/18 09:37 Troponin/CKMB Troponin I 0.014 ng/mL (< 0.028) 03/23/18 09:37 - Assessment/Plan 1. AVNRT, recurrent -s/p ablation 2. Cardiomyopathy -longstanding, severely reduced EF <35% -ECHO 2D done this AM confirms severely reduced EF <35% 3. Morbid obesity 4.Pericardia effusion -Trivial. seen on echo. Looked at images from EPS yesterday. effusion present at start of case yesterday. Not an acute issue. No VT over night on tele but inducible for VT during EPS. ICD scheduled this AM. Likely ok for DC later today once recovered from ICD implant. 7 day Keflex for prophylaxis post device implant. RX in chart. Will need upon DC.
[2018-03-25] MEDS ORDERED: Ondansetron HCl/PF 4 MG/2 ML Vial IVP PRN (12:42)
[2018-03-25] MEDS ORDERED: Promethazine HCl 25 MG/ML VIAL SLOW IVP PRN (12:42)
[2018-03-25] MEDS ORDERED: Promethazine HCl 25 MG/ML VIAL IM PRN (12:42)
[2018-03-25] MEDS ORDERED: PACU-Morphine 4MG/ML VIAL SLOW IVP PRN (12:42)
--- NOTE | 2018-03-25 15:18 | RAD ---
CHEST ONE VIEW: 03/25/18 HISTORY: ICD placement. COMPARISON: Radiograph 03/23/18. FINDINGS: The defibrillator pad projects over the midline lower chest. The heart size is enlarged. Mild pulmona ry venous congestion. Dual lead AICD/pacer is present. IMPRESSION: Uncomplicated placement of AICD/pacer. POS: OSMAN
[2018-03-25] MEDS: Cephalexin 250 MG CAP PO SCH ×2 (16:46→23:18)
[2018-03-25] MEDS: HYDROcodone/Acetaminophen 5/325 mg Tablet PO PRN (16:50)
[2018-03-25] MEDS ORDERED: PROPOFOL 200 MG/20 ML VIAL ONE (20:32)
[2018-03-26] MEDS: HYDROcodone/Acetaminophen 5/325 mg Tablet PO PRN (04:26)
[2018-03-26] MEDS: Cephalexin 250 MG CAP PO SCH (05:55)
[2018-03-26] MEDS: Furosemide 40 MG TAB PO SCH (08:00)
[2018-03-26] MEDS: Famotidine 20 MG TAB PO SCH (08:00)
[2018-03-26] MEDS: hydrALAZINE 25 MG TAB PO SCH (08:00)
[2018-03-26] MEDS: Carvedilol 25 MG TAB PO SCH (08:00)
[2018-03-26 08:33] VITALS: BP 152/84; TEMP 98.4
--- NOTE | 2018-03-27 05:57 | DIS ---
DATE OF ADMISSION: 03/23/2018 DATE OF DISCHARGE: 03/26/2018 PRIMARY CARE PHYSICIAN: [facility]. DISCHARGE DIAGNOSES: 1. Supraventricular tachycardia, status post ablation for AV latasha reentrant tachycardia on 03/24/2018. 2. Severe cardiomyopathy with EF less than 35%, status post AICD placement. 3. Morbid obesity. 4. History of medication noncompliance. 5. Chronic systolic congestive heart failure. 6. Hypertension. 7. Diabetes mellitus type 2. DISCHARGE MEDICATIONS: 1. Keflex 500 mg p.o. 6 hours for a total of 7 days. 2. Aspirin 81 mg daily. 3. Coreg 25 mg p.o. b.i.d. 4. Lasix 40 mg daily. 5. Imdur 30 mg daily. 6. Hydralazine 50 mg p.o. t.i.d. 7. Metformin 1000 mg p.o. b.i.d. 8. Glyburide 2.5 mg p.o. b.i.d. ALLERGIES: PLEASE NOTE THAT THE PATIENT IS ALLERGIC TO ATORVASTATIN AND LISINOPRIL. IN-HOUSE CONSULTATION: Electrophysiology, Dr. Panchal. PROCEDURES DONE IN THE HOSPITAL: 1. Elective electrophysiology study and radiofrequency ablation. 2. Placement of AICD. 3. Transthoracic echocardiogram which shows EF of 35% to 50% and hypokinesis of the anterior wall and [id number] mitral regurgitation and [id number] tricuspid regurgitation. 4. Chest x-ray upon presentation and after placement of the AICD, which showed satisfactory placement. HISTORY OF PRESENTING ILLNESS: Mr. Coleman is a 48-year-old Afro-[place] male with past medical history of chronic systolic heart failure and recurrent supraventricular tachycardia as well as hypertension, diabetes, who presented to the emergency room as a direct admit from his digital sales director, Dr. Guzman's office. He had presented there with complaints of lightheadedness, dizziness, and palpitation, and was found to have heart rate in the 160s, so he was sent to the ER. He was somewhat hypotensive in the ER with a blood pressure 94/75 with a heart rate of 155, and EKG showed supraventricular tachycardia. He was given adenosine 1 dose in the ER and converted to sinus rhythm and he was admitted for further evaluation with electrophysiology. Magnesium was replaced. Please see admission history and physical for further details. Please note that his cardiac catheterization earlier this year showed normal coronaries. HOSPITAL COURSE: The patient was seen by Dr. Panchal, who recommended radiofrequency ablation for the recurrent SVT. He tolerated the procedure very well. He was found to have inducible ventricular tachyarrhythmias during the procedure, so echo was ordered and the echo was consistent with cardiomyopathy: Not ischemic. It was decided that because of the low cardiac function and inducible ventricular arrhythmias, he would be a suitable candidate for AICD placement. This was done yesterday and the patient has tolerated the procedure very well. He was seen and examined this morning and is feeling well without any new complaints. He has no chest pain, shortness of breath. His AICD site is without any swelling or pain. PHYSICAL EXAMINATION: This morning; VITAL SIGNS: Temperature 98.4, heart rate 79, respirations 18, saturating 98% on room air, blood pressure 152/84. GENERAL: No acute distress. Awake, alert, and oriented x3. CHEST: Clear to auscultation bilaterally. Rate rhythm is regular. His AICD site is without any hematoma, swelling, erythema, or induration. He is being discharged to follow up with primary care physician as well as with Dr. Panchal and Dr. Guzman. Discharge plan was discussed with the patient who verbalized understanding. He was provided a prescription of Keflex by Dr. Panchal. He denies need for any refills on his home medications. Job ID: [id number]
== END 2018-03-26 09:46 | disposition home or self-care (01) | DRG 227 ==
LOC: EEVIPCON 09:20 → ERS 09:20 → OBSVTOIN 15:29 → 2SW 15:29
PROVIDERS: ADMIT Internal Medicine; ATTEND Internal Medicine
PROC: 02583ZZ Destruction of Conduction Mechanism, Percutaneous Approach (ICD-10-PCS; principal; 2018-03-24)
PROC: 02K83ZZ Map Conduction Mechanism, Percutaneous Approach (ICD-10-PCS; 2018-03-24)
PROC: 4A023FZ Measurement of Cardiac Rhythm, Percutaneous Approach (ICD-10-PCS; 2018-03-24)
PROC: 4A0234Z Measurement of Cardiac Electrical Activity, Percutaneous Approach (ICD-10-PCS; 2018-03-24)
PROC: 0JH609Z Insertion of Cardiac Resynchronization Defibrillator Pulse Generator into Chest Subcutaneous Tissue and Fascia, Open Approach (ICD-10-PCS; 2018-03-25)
PROC: 02HK3KZ Insertion of Defibrillator Lead into Right Ventricle, Percutaneous Approach (ICD-10-PCS; 2018-03-25)
PROC: 02H63KZ Insertion of Defibrillator Lead into Right Atrium, Percutaneous Approach (ICD-10-PCS; 2018-03-25)
DX: I47.1 Supraventricular tachycardia (principal); I42.9 Cardiomyopathy, unspecified; I50.22 Chronic systolic (congestive) heart failure; I11.0 Hypertensive heart disease with heart failure; E66.01 Morbid (severe) obesity due to excess calories; E83.42 Hypomagnesemia; E11.9 Type 2 diabetes mellitus without complications; Z68.37 Body mass index [BMI] 37.0-37.9, adult; F32.9 Major depressive disorder, single episode, unspecified; Z88.8 Allergy status to other drugs, medicaments and biological substances; Z79.1 Long term (current) use of non-steroidal anti-inflammatories (NSAID); Z79.84 Long term (current) use of oral hypoglycemic drugs; Z79.82 Long term (current) use of aspirin; Z79.899 Other long term (current) drug therapy
CPT/HCPCS: 36416; 71045; 76942; 80053; 83735; 83880; 84484; 85025; 93005; 93010; 93306; 93613; 93623; 93653; 94760; 96374; C1721; C1730; C1769; C1777; C1898; J0153; J1644; J1815; J2250; J2704; J3010; J3490

== ENCOUNTER 2019-05-15 18:43 | Emergency (ER) | payer SELFPAY | END 2019-05-15 20:32 | disposition home or self-care (01) | LOC: ERS 18:43 | DX: J11.1 Influenza due to unidentified influenza virus with other respiratory manifestations (principal); I49.9 Cardiac arrhythmia, unspecified; I11.0 Hypertensive heart disease with heart failure; I50.9 Heart failure, unspecified; E11.9 Type 2 diabetes mellitus without complications; E78.5 Hyperlipidemia, unspecified; M19.90 Unspecified osteoarthritis, unspecified site; F32.9 Major depressive disorder, single episode, unspecified | CPT/HCPCS: 87804; 99283 ==

== ENCOUNTER 2020-02-17 06:58 | Emergency (ER) | payer OTHER ==
[2020-02-17 07:55] LABS: #Basophils 0.1 thou/uL (0.0-0.2); #Eosinphils 0.1 thou/uL (0.0-0.7); #Lymphocytes 2.2 thou/uL (1.20-3.40); #Monocytes 0.6 thou/uL (0.11-0.59); #Neutrophils 3.9 thou/uL (1.40-6.50); %Basophils 1.3 % (0.0-1.0); %Eosinophils 2.1 % (0.0-10.0); %Lymphocytes 31.6 % (21.0-51.0); %Monocytes 8.2 % (0.0-10.0); %Neutrophils 56.9 % (42.0-75.0); Hemoglobin 13.7 g/dL (14.0-18.0); Mean Corpuscular Hemoglobin 29.8 pg (27.0-31.0); Mean Corpuscular Volume 90.1 fL (78.0-98.0); Mean Platelet Volume 7.3 fL (7.4-10.4); Platelet Count 289 thou/uL (130-400); RBC Distribution Width 12.1 % (11.5-14.5); Red Blood Cell (RBC) Count 4.59 mill/uL (4.70-6.10); White Blood Cell (WBC) Count 6.9 thou/uL (4.8-10.8)
--- NOTE | 2020-02-17 08:10 | RAD ---
Chest one view HISTORY: Chest and abdomen pain. COMPARISON: 03/25/2018. FINDINGS: Cardiac silhouette is magnified by projection and upper limits of normal in size. Mediastin um is midline with a dual lead left subclavian cardiac electronic device. No lobar consolidation or evidence of pneumothorax. No evidence of free subdiaphragmatic gas. IMPRESSION : No active cardiopulmonary abnormalities are demonstrated.
[2020-02-17 08:15] LABS: ALT (SGPT) 11 U/L (8-55); AST (SGOT) 15 U/L (5-34); Albumin 3.9 g/dL (3.5-5.0); Alkaline Phosphatase 96 U/L (40-110); Anion Gap 15 mmol/L (10-20); BUN (Urea Nitrogen) 9 mg/dL (8.4-25.7); Bilirubin, Total 0.6 mg/dL (0.2-1.2); Calc. Creatinine Clearance 0 mL/min (70-130); Calcium 9.1 mg/dL (7.8-10.44); Carbon Dioxide 22 mmol/L (22-29); Chloride 101 mmol/L (98-107); Estimated GFR-MDRD Greater than 90; Globulin 3.4 g/dL (2.4-3.5); Glucose 195 mg/dL (70-105); Lipase 64 U/L (8-78); Potassium 4.2 mmol/L (3.5-5.1); Protein, Total 7.3 g/dL (6.0-8.3); Sodium 134 mmol/L (136-145)
[2020-02-17] MEDS ORDERED: Ondansetron PF 4 MG/2 ML Vial ONE (08:26)
[2020-02-17] MEDS ORDERED: Mag-Al 1200 mg/1200 mg/30 ML UDCUP ONE ×2 (08:26→08:28)
[2020-02-17] MEDS ORDERED: Lidocaine Viscous Sol 2% 15 ml UD Cup ONE (08:26)
[2020-02-17] MEDS ORDERED: Pantoprazole 40 MG VIAL ONE (08:26)
== END 2020-02-17 09:37 | disposition home or self-care (01) ==
LOC: ERS 06:58
DX: R10.13 Epigastric pain (principal); I47.1 Supraventricular tachycardia; I11.0 Hypertensive heart disease with heart failure; I50.9 Heart failure, unspecified; E11.9 Type 2 diabetes mellitus without complications; M19.90 Unspecified osteoarthritis, unspecified site; E78.5 Hyperlipidemia, unspecified; F32.9 Major depressive disorder, single episode, unspecified; Z79.84 Long term (current) use of oral hypoglycemic drugs; Z79.899 Other long term (current) drug therapy
CPT/HCPCS: 36415; 71045; 80053; 83690; 83880; 84484; 85025; 93005; 96374; 96375; C9113; J2405

== ENCOUNTER 2020-03-13 18:25 | Emergency (ER) | payer OTHER ==
[2020-03-13 18:59] LABS: #Basophils 0.1 thou/uL (0.0-0.2); #Eosinphils 0.1 thou/uL (0.0-0.7); #Lymphocytes 2.1 thou/uL (1.20-3.40); #Monocytes 0.6 thou/uL (0.11-0.59); #Neutrophils 7.5 thou/uL (1.40-6.50); %Basophils 1.1 % (0.0-1.0); %Eosinophils 0.8 % (0.0-10.0); %Lymphocytes 20.6 % (21.0-51.0); %Monocytes 5.9 % (0.0-10.0); %Neutrophils 71.6 % (42.0-75.0); Hemoglobin 14.3 g/dL (14.0-18.0); Mean Corpuscular HGB CONC 32.6 g/dL (32.0-36.0); Mean Corpuscular Hemoglobin 29.4 pg (27.0-31.0); Mean Corpuscular Volume 90.2 fL (78.0-98.0); Mean Platelet Volume 7.3 fL (7.4-10.4); Platelet Count 311 thou/uL (130-400); RBC Distribution Width 12.2 % (11.5-14.5); Red Blood Cell (RBC) Count 4.87 mill/uL (4.70-6.10); White Blood Cell (WBC) Count 10.4 thou/uL (4.8-10.8)
--- NOTE | 2020-03-13 19:12 | RAD ---
CHEST ONE VIEWS: 03/13/20 INDICATIONS: Chest pain. COMPARISON: Prior exam dated 02/17/20. FINDINGS: Lungs are clear. Dual lead AICD is unchanged. Mild cardiomegaly is stable. No pleural effusion, pneum othorax is evident. No acute osseous abnormality is noted. IMPRESSION: No acute cardiopulmonary abnormality. POS: BH
[2020-03-13 19:24] LABS: ALT (SGPT) 12 U/L (8-55); AST (SGOT) 15 U/L (5-34); Albumin 4.1 g/dL (3.5-5.0); Alkaline Phosphatase 102 U/L (40-110); Anion Gap 16 mmol/L (10-20); BUN (Urea Nitrogen) 9 mg/dL (8.4-25.7); Bilirubin, Total 0.6 mg/dL (0.2-1.2); Calc. Creatinine Clearance 0 mL/min (70-130); Calcium 9.1 mg/dL (7.8-10.44); Carbon Dioxide 21 mmol/L (22-29); Chloride 103 mmol/L (98-107); Globulin 3.4 g/dL (2.4-3.5); Glucose 194 mg/dL (70-105); Potassium 3.7 mmol/L (3.5-5.1); Protein, Total 7.5 g/dL (6.0-8.3); Sodium 136 mmol/L (136-145)
[2020-03-13] MEDS ORDERED: Ibuprofen 200 MG TAB ONE (20:24)
--- NOTE | 2020-03-16 15:23 | EKG ---
Test Reason : Blood Pressure : / mmHG Vent. Rate : 111 BPM Atrial Rate : 111 BPM P-R Int : 150 ms QRS Dur : 076 ms QT Int : 344 ms P-R-T Axes : 053 -15 038 degrees QTc Int : 467 ms Sinus tachycardia Possible Left atrial enlargement Anterior infarct , age undetermined Abnormal ECG Confirmed by BAYRON LANTIGUA, ERASTO ([id number]), photo editor SULTANA BROWNLEE ([id number]) on 03/16/2020 3:22:50 PM Referred By: Confirmed By:ERASTO VERMA MD
== END 2020-03-13 20:44 | disposition home or self-care (01) ==
LOC: ERS 18:25
DX: G89.18 Other acute postprocedural pain (principal); R68.84 Jaw pain; I11.0 Hypertensive heart disease with heart failure; I50.9 Heart failure, unspecified; E11.9 Type 2 diabetes mellitus without complications; E78.5 Hyperlipidemia, unspecified
CPT/HCPCS: 36415; 71045; 80053; 85025; 93005